=== PATIENT | female | born 1945 | race Caucasian/White ===

== ENCOUNTER 2023-04-03 21:05 | Inpatient (IN) | payer MEDICARE, OTHER, SELFPAY ==
--- NOTE | ~2023-04-03 | CT_ITS ---
EXAMINATION: CT HEAD WITHOUT CONTRAST CLINICAL INFORMATION: Dementia. Vascular event. COMPARISON: None available. TECHNIQUE: Contiguous axial imaging was performed from the skull base to vertex without intravenous administration of contrast. This CT examination was performed using dose optimization techniques as appropriate, variously including the following: *Automated exposure control. *Adjustment of mA and/or kV according to patient size (this includes techniques or standardized protocols for targeted exams where dose is matched to indication/reason for exam; i.e. extremities or head). *Use of iterative reconstruction technique. DLP: 709 mGy-cm FINDINGS: There is no evidence of acute intracranial hemorrhage or edematous territorial infarction. 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 No additional loss of cooper-white matter differentiation. Scattered and partially confluent hypoattenuation in the periventricular and deep white matter are consistent with moderate microangiopathy. Proportional prominence of the ventricles and sulcal spaces without evidence of obstructive hydrocephalus. Prominence of the CSF space in the anterior aspect of the left middle cranial fossa consistent with an underlying 4 cm arachnoid cyst. No additional abnormal mass effect or midline shift. No extra-axial fluid collections. Calcific atherosclerotic disease of the intracranial internal carotid arteries. No hyperdense vessel sign. No acute soft tissue or osseous abnormalities. Moderate mucosal thickening the paranasal sinuses. Mild rightward nasal septal deviation. The mastoid air cells and middle ear cavities are clear. Moderate to advanced degenerative arthropathy of the temporomandibular joints. Bilateral lens extractions. CT/CT head/brain wo IV con IMPRESSION: 1. No evidence of acute intracranial hemorrhage or edematous territorial infarction. 2. Moderate underlying microangiopathy and generalized cerebral volume loss. 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
[2023-04-03 21:41] VITALS: BMI 19.6
[2023-04-03 21:51] VITALS: BMI 43.4
[2023-04-03 21:55] VITALS: BP 132/65; PULSE 85; RESP 18; TEMP 35.8; O2SAT 98
[2023-04-03] MEDS: LORazepam 0.5 MG TABLET PO (23:46)
[2023-04-03] MEDS: risperiDONE 0.5 MG TABLET PO (23:47)
--- NOTE | 2023-04-04 | ECG_ITS ---
Test Reason : htn Blood Pressure : / mmHG Vent. Rate : 071 BPM Atrial Rate : 071 BPM P-R Int : 166 ms QRS Dur : 122 ms QT Int : 412 ms P-R-T Axes : 046 034 153 degrees QTc Int : 447 ms Normal sinus rhythm Left bundle branch block Abnormal ECG No previous ECGs available Referred By: Ray Jacobson Electronically Signed By:TINO DELCID
--- NOTE | 2023-04-04 00:21 | PC.ADMIT ---
Pt is a hospital to hospital transfer from [facility]. Pt arrived on unit 04/03/2023 at 2120. Pt signed CV. Pt calm and cooperative, pleasant, confused. Pt became anxious and impulsive. Pt oriented to self only. Pt can not remember being at [facility] or being transported here. Pt could remember that she lives at home with her Dhaval but does not know her address or Dhaval's phone number. Pt signed consents to contact Dhaval. Pt also gave consent to contact her pharmacy and PCP though she can not provide names. Pt given tour of unit, took HS risperdol and PRN ativan and went to bed. Pt is on 1:1 at this time d/t confusion and impulsively.
[2023-04-04 08:10] VITALS: BP 119/59; PULSE 93; RESP 16; TEMP 36.6; O2SAT 96
[2023-04-04] MEDS: Sertraline HCL 25 MG TABLET PO (08:50)
[2023-04-04] MEDS: Metoprolol Succinate ER 100 MG TAB.ER.24H PO (08:50)
[2023-04-04] MEDS: Spironolactone 25 MG TABLET PO (08:51)
[2023-04-04] MEDS: risperiDONE 0.5 MG TABLET PO ×2 (08:51→22:56)
[2023-04-04] MEDS: Donepezil HCl 5 MG TABLET PO (08:51)
[2023-04-04] MEDS: amLODIPine Besylate 2.5 MG TABLET PO (08:51)
[2023-04-04] MEDS: Fenofibrate 160 MG TABLET PO (08:54)
--- NOTE | 2023-04-04 12:44 | P.CONHOSP_ITS ---
History of Present Illness Data of Consult Service Date: 04/04/23 Primary Care Provider: Unknown Physician HPI Reason for consult: Admission H&P Pt is a 78-year-old female with a PMH significant for HTN, HLD, and Alzheimer's dementia who is admitted to [facility] for increased agitation and disorgazined thought. Medical consult for admission H&P. Attempted to interview and examine pt, but she refused to answer questions or allow physical examination. ? EKG reviewed, showed normal sinus rhythm with left bundle branch block, in line with previous from pt's file, the last on 04/03/2023. CT of head showed no evidence of acute intracranial hemorrhage or edematous territorial infarction Review of Systems Review of Systems: Unable to obtain: pt refused interview. [facility] Social History Household Members: Spouse Housing: House Do you presently have visiting nurse or other home services: No Patient Tobacco Use Status: Never used Tobacco Smoked in Last 30 Days: No e-Cigarette/Vaping Use: Never Used Patient Interested in Nicotine Replacement: No Patient Given Instructions on How to Stop Smoking: No Second Hand Smoke Exposure: No Use of substances other than those prescribed or required for medical reasons: No Currently Displaying Signs/Symptoms of Drug Intoxication Withdrawal: No Any prior treatment program specific to substance use: No Have you been hit, kicked, punched, or otherwise hurt by someone within the past year? If so, by whom?: No Do you feel safe in your current relationship?: Yes Is there a partner from a previous relationship who is making you feel unsafe now?: No Are you made to feel afraid or neglected: No Advance Directives: No Advance Directives Information Provided: No Do you have thoughts of harming others: None Do you have a plan to hurt others: No Plan Recently lost weight without trying: No Nutrition Risks: No Nutritional Risk Patient : No : No Poor oral hygiene: No service: No Sexual orientation: Straight/Heterosexual Meds Allergies Allergy/AdvReac Type Severity Reaction Status Date / Time No Known Allergies Allergy Verified 04/03/23 22:02 Active Medications: Current Medications Acetaminophen (Acetaminophen 325 Mg Tablet) 650 mg PO Q6H PRN PRN Reason: Headache/Pain Mild Scale (1-3) Al Hydroxide/Mg Hydroxide (Magnesium Hydrox/Alum Hydrox 30 Ml Oral.Susp) 30 ml PO Q6H PRN PRN Reason: Heartburn/Nausea Amlodipine Besylate (Amlodipine Besylate 2.5 Mg Tablet) 2.5 mg PO DAILY [facility]; Protocol Last Admin: 04/04/23 08:51 Dose: 2.5 mg Donepezil HCl (Donepezil Hcl 5 Mg Tablet) 5 mg PO DAILY [facility] Last Admin: 04/04/23 08:51 Dose: 5 mg Fenofibrate (Fenofibrate 160 Mg Tablet) 160 mg PO DAILY [facility] Last Admin: 04/04/23 08:54 Dose: 160 mg Lorazepam (Lorazepam 0.5 Mg Tablet) 0.5 mg PO BID PRN PRN Reason: Anxiety Last Admin: 04/03/23 23:46 Dose: 0.5 mg Magnesium Hydroxide (Milk Of Magnesia 30 Ml Oral.Susp) 30 ml PO DAILY PRN PRN Reason: Constipation Metoprolol Succinate (Metoprolol Succinate Er 100 Mg Tab.Er.24h) 100 mg PO DAILY [facility]; Protocol Last Admin: 04/04/23 08:50 Dose: 100 mg Risperidone (Risperidone 0.5 Mg Tablet) 0.5 mg PO BID [facility] Last Admin: 04/04/23 08:51 Dose: 0.5 mg Sertraline HCl (Sertraline Hcl 25 Mg Tablet) 25 mg PO DAILY [facility] Last Admin: 04/04/23 08:50 Dose: 25 mg Spironolactone (Spironolactone 25 Mg Tablet) 25 mg PO DAILY [facility]; Protocol Last Admin: 04/04/23 08:51 Dose: 25 mg Home Medications Medication Instructions Recorded Confirmed Last Taken Type amlodipine 2.5 mg tablet 2.5 mg PO DAILY 04/03/23 04/03/23 04/02/23 09:05 History donepezil 5 mg tablet 5 mg PO DAILY 04/03/23 04/03/23 04/01/23 20:55 History fenofibrate 160 mg tablet 160 mg PO DAILY 04/03/23 04/03/23 04/02/23 09:05 History lorazepam 0.5 mg tablet 0.5 mg PO BID PRN Anxiety 04/03/23 04/03/23 04/02/23 01:05 History metoprolol succinate 100 mg 100 mg PO DAILY 04/03/23 04/03/23 Unknown History tablet,extended release 24 hr olanzapine 2.5 mg PO PRN Agitation 04/03/23 03/29/23 21:45 History olanzapine 5 mg PO DAILY 04/03/23 04/03/23 04/02/23 09:05 History risperidone 0.5 mg PO BID 04/03/23 04/03/23 04/02/23 09:05 History sertraline 25 mg tablet 25 mg PO DAILY 04/03/23 04/03/23 Unknown History spironolactone 25 mg tablet 25 mg PO DAILY 04/03/23 04/03/23 04/02/23 09:05 History Physical Exam Vital Signs and Narrative: Vital Signs: Last Vital Signs Temp 97.8 F 04/04/23 08:10 Pulse 93 04/04/23 08:10 Resp 16 04/04/23 08:10 BP 119/59 L 04/04/23 08:10 Pulse Ox 96 04/04/23 08:10 O2 Del Method Room Air 04/04/23 08:10 BMI result Body Mass Index 43.4 Unable to perform: pt refused exam Assessment and Plan (1) Routine history and physical examination of adult: Status: Acute Plan Pt is a 78-year-old female with a PMH significant for HTN, HLD, and Alzheimer's dementia who is admitted to [facility] for increased agitation and disorgazined thought. Medical consult for admission H&P. Attempted to interview and examine pt, but she refused to answer questions or allow physical examination. Mood disorder Plan as per psychiatry Alzheimer's demetia Unclear if at baseline CT on 03/27/2023 negative for acute intracranial abnormalities CT here on 04/04/2023 showed no evidence of acute intracranial hemorrhage or edematous territorial infarction Continue donepezil Left bundle branch block Appears chronic Continue metoprolol HLD Continue fenofibrate HTN BP control acceptible on current therapies Continue amlodipine, spironolactone Thank you for allowing us to participate in the care of this patient. Signing off at this time. Please let us know if there are any acute complaints or questions. Time Spent With Patient Time: Total time managing care of this patient today ____ minutes.
--- NOTE | 2023-04-04 13:10 | HO.PSYADMNOT ---
[facility] Date of Service: 04/04/23 Chief Complaint: F03.91 Dementia with behavioral disturbances Sources of Information: patient interviewed, chart reviewed and crisis/core team assessment reviewed HPI Subjective Notes: Chambers Warning and Conditional Voluntary Narrative: The patient is a 78-year-old female, , mother of adult children, living with her in the community with a past history of Alzheimer's disease, high blood pressure and a recent onset of confusion with behavioral disturbances. According to the crisis assessment, the patient carries a diagnosis of dementia and she lives with her . In the last weeks the patient had been wandering in the street, eloping from her home, confused at times and trying to get into a neighbor's house. The report also states that the patient gets violent at times easily agitated and even verbally and physically abusive towards her impaired . Her daughter who is involved in the care informed the clinical social work aide the emergency room about the situation. The patient was initially brought to the emergency room of another hospital, medically cleared and transferring to this facility for psychiatric stabilization. Since she was in the unit, the patient has been pleasant, cooperative but extremely confused at times. She had been fully compliant with her treatment so far. On interview, the patient looks confused, states that she is doing fine, she look guarded and refused to elaborate and she was unable to provide further information. She was a very poor historian. She adamantly denies suicidal or homicidal ideation at this moment. Past Psychiatric History: The patient does not have prior psychiatric admissions, she had never been treated for psychiatric conditions. She had been diagnosed of Alzheimer's before. Medical Evaluation Reviewed: Yes [facility] Narrative: High blood pressure Family History: Denies Social History: Unable to get more collateral information, the patient according to the chart, is and has adult children, she has good social support and lives in the community. Substance History: Denies Trauma History: Unknown Diagnostics Vital Signs (24Hr): Vital Signs - 24 hr 04/03/23 21:55 04/04/23 08:10 Temperature 96.4 F L 97.8 F Pulse Rate 85 93 Respiratory Rate 18 16 Blood Pressure 132/65 119/59 L Pulse Oximetry 98 96 Oxygen Delivery Method Room Air Room Air BMI result Body Mass Index 43.4 Meds/Allergies Meds Home Medications Medication Instructions Recorded Confirmed Type amlodipine 2.5 mg tablet 2.5 mg PO DAILY 04/03/23 04/03/23 History donepezil 5 mg tablet 5 mg PO DAILY 04/03/23 04/03/23 History fenofibrate 160 mg tablet 160 mg PO DAILY 04/03/23 04/03/23 History lorazepam 0.5 mg tablet 0.5 mg PO BID PRN Anxiety 04/03/23 04/03/23 History metoprolol succinate 100 mg 100 mg PO DAILY 04/03/23 04/03/23 History tablet,extended release 24 hr olanzapine 2.5 mg PO PRN Agitation 04/03/23 History olanzapine 5 mg PO DAILY 04/03/23 04/03/23 History risperidone 0.5 mg PO BID 04/03/23 04/03/23 History sertraline 25 mg tablet 25 mg PO DAILY 04/03/23 04/03/23 History spironolactone 25 mg tablet 25 mg PO DAILY 04/03/23 04/03/23 History Allergies Allergies Allergy/AdvReac Type Severity Reaction Status Date / Time No Known Allergies Allergy Verified 04/03/23 22:02 Mental Status Exam Mental Status Exam Patient Appearance: Well Grooomed Patient Orientation: Person Level of Consciousness: Awake and Disoriented Patient Behavior: Guarded and Suspicious Mood Description: Withdrawn Affect Description: Labile Patient Cognition Impaired: Yes Ability to Follow Directions: Fair Speech Pattern: Clear Hallucinations: None Thought Process: Distracted, Evasive and Slowed Thinking Thought Content: positive for [place], positive for Poverty of Content and positive for Thought Blocking Judgement: Poor Assessment & Plan Assessment & Plan (1) Neurodegenerative cognitive impairment: Status: Acute Code(s): G31.9 - Degenerative disease of nervous system, unspecified (2) Psychosis: Status: Acute Code(s): F29 - Unspecified psychosis not due to a substance or known physiological condition Plan The patient is an elderly female with a past history of [place] dementia was brought to the emergency room for exacerbation of agitation and confusion in the context of her Alzheimer's dementia. She was medically cleared in the emergency room and so far there is no evidence of UTI or any other medical conditions. Plan 1. Gather collateral information. The patient is a very poor historian unable to provide any details into her past medical history a or why she was here. 2. Continue with Aricept 5 mg p.o. q.h.s. as per med reconciliation. 3. CT scan head without contrast. 4. Regular blood work with basic metabolic panel CBC and TSH. 5. Continue with neuroleptics. 6. Hospitalist assessment for medical clearance. 7. Reassessment with results. Patient educated on: diagnosis, therapeutic strategies and medical condition Reason for continued inpatient stay Substantial Risk for: inability to function, rapid decompensation and med/psych decompensation Statement Statement: I have reviewed the history and physical and performed a pertinent examination on my patient. No changes have occurred unless specified. If the History and Physical was not performed prior to admission, the Hospitalist's service will be consulted for completing the admission physical. Time Spent With Patient Time: Total time managing care of this patient today __45__ minutes.
[2023-04-04 22:30] VITALS: BP 129/60; PULSE 76; RESP 18; TEMP 36.9; O2SAT 97
[2023-04-04] MEDS: LORazepam 0.5 MG TABLET PO (22:56)
[2023-04-05 07:00] VITALS: BMI 19.8
[2023-04-05 08:06] LABS: MANUAL DIFF FLAG NO
[2023-04-05 08:10] LABS: Basophils Absolute Auto 0.1 X10*3/uL (0.0-0.2); Basophils Percent Auto 0.8 % (0-2); Eosinophils Absolute Auto 0.1 X10*3/uL (0.0-0.4); Eosinophils Percent Auto 1.7 % (0-4); Hematocrit 39.3 % (37.0-47.0); Hemoglobin 13.5 g/dl (12.0-16.0); Imm Gran Abs Auto 0.06 X10*3/uL (0.00-0.03); Imm Gran Pct Auto 0.8 % (0.0-0.4); Lymphocytes Absolute Auto 1.3 X10*3/uL (1.2-4.9); Lymphocytes Percent Auto 17.5 % (20-40); Mean Corpuscular HGB Conc 34.4 g/dl (31.0-35.0); Mean Corpuscular Hemoglobin 31.8 pg (27.0-33.0); Mean Corpuscular Volume 92.5 fL (80.0-98.0); Mean Platelet Volume 10.3 fL (9.4-12.3); Monocytes Absolute Auto 0.8 X10*3/uL (0.1-1.2); Monocytes Percent Auto 10.5 % (2-11); Neutrophils Absolute Auto 5.1 x10*3/uL (2.0-8.3); Neutrophils Percent Auto 68.7 % (45-73); Platelet Count 277 X10*3/uL (160-400); Red Blood Count 4.25 X10*6/uL (4.20-5.50); Red Cell Distribution Width 13.2 % (11.0-16.0); White Blood Count 7.4 X10*3/uL (4.8-10.8)
[2023-04-05 08:30] VITALS: BP 135/54; PULSE 79; RESP 16; TEMP 36; O2SAT 97
[2023-04-05 09:09] LABS: Anion Gap 13 (12-20); Blood Urea Nitrogen 26 mg/dL (9-16); Carbon Dioxide 23 mmol/L (22-29); Chloride 106 mmol/L (96-108); Creatinine Clr Calc Pharmacy 65.1; Estimated Glomerular Filt Rate > 60; Glucose Random 103 mg/dL (60-115); Potassium 3.6 mmol/L (3.3-5.1); Sodium 138 mmol/L (135-145)
[2023-04-05] MEDS: Donepezil HCl 5 MG TABLET PO (09:33)
[2023-04-05] MEDS: Metoprolol Succinate ER 100 MG TAB.ER.24H PO (09:33)
[2023-04-05] MEDS: risperiDONE 0.5 MG TABLET PO ×2 (09:33→20:41)
[2023-04-05] MEDS: Fenofibrate 160 MG TABLET PO (09:34)
[2023-04-05] MEDS: Spironolactone 25 MG TABLET PO (09:34)
[2023-04-05] MEDS: amLODIPine Besylate 2.5 MG TABLET PO (09:34)
[2023-04-05] MEDS: Sertraline HCL 25 MG TABLET PO (09:34)
--- NOTE | 2023-04-05 13:58 | HO.PSYCHPN ---
Subjective Subjective Date of Service: 04/05/23 Reason For Visit: F03.91 Dementia with behavioral disturbances Subjective Notes: Conditional Voluntary (Healthcare proxy) Interim History: The nursing staff reported that the patient has been confused but pleasantly confused, off 1:1, safe in the community. On interview, she was unable to understand that she was in the hospital, unable to remember how come she ended here. I invoked her HCP and her HCP signed herself her. Mental Status Exam Mental Status Exam Patient Appearance: Well Grooomed and Appropriate Patient Orientation: Person Level of Consciousness: Disoriented Patient Behavior: Guarded and Passive Mood Description: Withdrawn Affect Description: Constricted Patient Cognition Impaired: Yes Ability to Follow Directions: Fair Speech Pattern: Clear Hallucinations: None Delusions: Paranoid Ideation Thought Process: Illogical and Distracted Thought Content: positive for [place], positive for Poverty of Content, positive for [place] and positive for Thought Blocking Judgement: Poor Diagnostics Vital Signs (24Hr): Vital Signs - 24 hr 04/04/23 22:30 04/05/23 08:30 Temperature 98.4 F 96.8 F Pulse Rate 76 79 Respiratory Rate 18 16 Blood Pressure 129/60 135/54 L Pulse Oximetry 97 97 Oxygen Delivery Method Room Air Room Air BMI result Body Mass Index 43.4 Labs 04/05/23 08:04 04/05/23 08:04 Labs: Laboratory Results - last 48 hr 04/05/23 04/05/23 08:04 08:04 WBC 7.4 RBC 4.25 Hgb 13.5 Hct 39.3 MCV 92.5 MCH 31.8 MCHC 34.4 RDW 13.2 Plt Count 277 MPV 10.3 Immature Gran % (Auto) 0.8 H Neut % (Auto) 68.7 Lymph % (Auto) 17.5 L [place] % (Auto) 10.5 Eos % (Auto) 1.7 Baso % (Auto) 0.8 Lymph # (Auto) 1.3 [place] # (Auto) 0.8 Eos # (Auto) 0.1 Baso # (Auto) 0.1 Abs Immat Gran (auto) 0.06 H Absolute Neuts (auto) 5.1 Absolute Nucleated RBC 0.000 Nucleated RBC % (auto) 0.0 Sodium 138 Potassium 3.6 Chloride 106 Carbon Dioxide 23 Anion Gap 13 BUN 26 H Creatinine 0.87 Estim Creat Clear Calc 65.1 Estimated GFR > 60 Random Glucose 103 Calcium 10.0 TSH 2.60 Imaging Radiology Impressions: ITS Impressions Head CT 04/04/23 11:19 IMPRESSION: 1. No evidence of acute intracranial hemorrhage or edematous territorial infarction. 2. Moderate underlying microangiopathy and generalized cerebral volume loss. 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 Medications Medications Current Medications Acetaminophen (Acetaminophen 325 Mg Tablet) 650 mg PO Q6H PRN PRN Reason: Headache/Pain Mild Scale (1-3) Al Hydroxide/Mg Hydroxide (Magnesium Hydrox/Alum Hydrox 30 Ml Oral.Susp) 30 ml PO Q6H PRN PRN Reason: Heartburn/Nausea Amlodipine Besylate (Amlodipine Besylate 2.5 Mg Tablet) 2.5 mg PO DAILY [facility]; Protocol Last Admin: 04/05/23 09:34 Dose: 2.5 mg Donepezil HCl (Donepezil Hcl 5 Mg Tablet) 5 mg PO DAILY [facility] Last Admin: 04/05/23 09:33 Dose: 5 mg Fenofibrate (Fenofibrate 160 Mg Tablet) 160 mg PO DAILY [facility] Last Admin: 04/05/23 09:34 Dose: 160 mg Lorazepam (Lorazepam 0.5 Mg Tablet) 0.5 mg PO BID PRN PRN Reason: Anxiety Last Admin: 04/04/23 22:56 Dose: 0.5 mg Magnesium Hydroxide (Milk Of Magnesia 30 Ml Oral.Susp) 30 ml PO DAILY PRN PRN Reason: Constipation Metoprolol Succinate (Metoprolol Succinate Er 100 Mg Tab.Er.24h) 100 mg PO DAILY [facility]; Protocol Last Admin: 04/05/23 09:33 Dose: 100 mg Risperidone (Risperidone 0.5 Mg Tablet) 0.5 mg PO BID [facility] Last Admin: 04/05/23 09:33 Dose: 0.5 mg Sertraline HCl (Sertraline Hcl 25 Mg Tablet) 25 mg PO DAILY [facility] Last Admin: 04/05/23 09:34 Dose: 25 mg Spironolactone (Spironolactone 25 Mg Tablet) 25 mg PO DAILY [facility]; Protocol Last Admin: 04/05/23 09:34 Dose: 25 mg Allergies Allergies Allergy/AdvReac Type Severity Reaction Status Date / Time No Known Allergies Allergy Verified 04/03/23 22:02 Assessment & Plan Assessment & Plan (1) Routine history and physical examination of adult: Status: Acute Code(s): Z00.00 - Encounter for general adult medical examination without abnormal findings Plan Pt is a 78-year-old female with a PMH significant for HTN, HLD, and Alzheimer's dementia who is admitted to [facility] for increased agitation and disorgazined thought. Medical consult for admission H&P. Attempted to interview and examine pt, but she refused to answer questions or allow physical examination. Mood disorder Plan as per psychiatry Alzheimer's demetia Unclear if at baseline CT on 03/27/2023 negative for acute intracranial abnormalities CT here on 04/04/2023 showed no evidence of acute intracranial hemorrhage or edematous territorial infarction Continue donepezil Left bundle branch block Appears chronic Continue metoprolol HLD Continue fenofibrate HTN BP control acceptible on current therapies Continue amlodipine, spironolactone Thank you for allowing us to participate in the care of this patient. Signing off at this time. Please let us know if there are any acute complaints or questions. Plan 1. Gather collateral information. 2. Continue with medical work-out. 3. Increase Aricept up to 10 mg to target dementia. Reason for continued inpatient stay Substantial Risk for: inability to function, rapid decompensation and med/psych decompensation Time Spent With Patient Time: Total time managing care of this patient today __20__ minutes.
[2023-04-05 18:00] VITALS: BP 133/56; PULSE 65; RESP 18; TEMP 36.1; O2SAT 100
[2023-04-06 08:10] VITALS: BP 124/59; PULSE 59; RESP 18; TEMP 36.4; O2SAT 100
[2023-04-06] MEDS: amLODIPine Besylate 2.5 MG TABLET PO (08:12)
[2023-04-06] MEDS: Donepezil HCl 10 MG TABLET PO (08:12)
[2023-04-06] MEDS: risperiDONE 0.5 MG TABLET PO (08:12)
[2023-04-06] MEDS: Sertraline HCL 25 MG TABLET PO (08:12)
[2023-04-06] MEDS: Fenofibrate 160 MG TABLET PO (08:12)
[2023-04-06] MEDS: Spironolactone 25 MG TABLET PO (08:12)
[2023-04-06] MEDS: Metoprolol Succinate ER 100 MG TAB.ER.24H PO (08:12)
--- NOTE | 2023-04-06 11:50 | P.PNPSI_ITS ---
Subjective Subjective Date of Service: 04/06/23 Reason For Visit: F03.91 Dementia with behavioral disturbances Subjective Notes: Conditional Voluntary Interim History: The nursing staff reported the patient had been profoundly confused, she is pleasant and medication compliant with sporadic exit seeking behavior but easily redirectable. The high school social science teacher reported that her daughter wants back home. So far there has not been a aggression in the unit. On interview the patient denies new symptoms she is very confused unable to follow the interview nonsensical at times. Mental Status Exam Mental Status Exam Patient Appearance: Appropriate Patient Orientation: Person and Situation Level of Consciousness: Awake and Appropriate Patient Behavior: Guarded and Passive Mood Description: Withdrawn Affect Description: Constricted Patient Cognition Impaired: Yes Ability to Follow Directions: Good Speech Pattern: Clear Hallucinations: None Delusions: Paranoid Ideation Thought Process: Incoherent, Illogical and Slowed Thinking Thought Content: positive for [place] Judgement: Poor Diagnostics Vital Signs (24Hr): Vital Signs - 24 hr 04/05/23 18:00 04/06/23 08:10 Temperature 96.9 F 97.5 F Pulse Rate 65 59 Respiratory Rate 18 18 Blood Pressure 133/56 L 124/59 L Pulse Oximetry 100 100 Oxygen Delivery Method Room Air Room Air BMI result Body Mass Index 19.8 Labs 04/05/23 08:04 04/05/23 08:04 Labs: Laboratory Results - last 48 hr 04/05/23 04/05/23 08:04 08:04 WBC 7.4 RBC 4.25 Hgb 13.5 Hct 39.3 MCV 92.5 MCH 31.8 MCHC 34.4 RDW 13.2 Plt Count 277 MPV 10.3 Immature Gran % (Auto) 0.8 H Neut % (Auto) 68.7 Lymph % (Auto) 17.5 L [place] % (Auto) 10.5 Eos % (Auto) 1.7 Baso % (Auto) 0.8 Lymph # (Auto) 1.3 [place] # (Auto) 0.8 Eos # (Auto) 0.1 Baso # (Auto) 0.1 Abs Immat Gran (auto) 0.06 H Absolute Neuts (auto) 5.1 Absolute Nucleated RBC 0.000 Nucleated RBC % (auto) 0.0 Sodium 138 Potassium 3.6 Chloride 106 Carbon Dioxide 23 Anion Gap 13 BUN 26 H Creatinine 0.87 Estim Creat Clear Calc 65.1 Estimated GFR > 60 Random Glucose 103 Calcium 10.0 TSH 2.60 Imaging Radiology Impressions: ITS Impressions Head CT 04/04/23 11:19 IMPRESSION: 1. No evidence of acute intracranial hemorrhage or edematous territorial infarction. 2. Moderate underlying microangiopathy and generalized cerebral volume loss. 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 Medications Medications Current Medications Acetaminophen (Acetaminophen 325 Mg Tablet) 650 mg PO Q6H PRN PRN Reason: Headache/Pain Mild Scale (1-3) Al Hydroxide/Mg Hydroxide (Magnesium Hydrox/Alum Hydrox 30 Ml Oral.Susp) 30 ml PO Q6H PRN PRN Reason: Heartburn/Nausea Amlodipine Besylate (Amlodipine Besylate 2.5 Mg Tablet) 2.5 mg PO DAILY [facility]; Protocol Last Admin: 04/06/23 08:12 Dose: 2.5 mg Donepezil HCl (Donepezil Hcl 10 Mg Tablet) 10 mg PO DAILY [facility] Last Admin: 04/06/23 08:12 Dose: 10 mg Fenofibrate (Fenofibrate 160 Mg Tablet) 160 mg PO DAILY [facility] Last Admin: 04/06/23 08:12 Dose: 160 mg Lorazepam (Lorazepam 0.5 Mg Tablet) 0.5 mg PO BID PRN PRN Reason: Anxiety Last Admin: 04/04/23 22:56 Dose: 0.5 mg Magnesium Hydroxide (Milk Of Magnesia 30 Ml Oral.Susp) 30 ml PO DAILY PRN PRN Reason: Constipation Metoprolol Succinate (Metoprolol Succinate Er 100 Mg Tab.Er.24h) 100 mg PO DAILY [facility]; Protocol Last Admin: 04/06/23 08:12 Dose: 100 mg Risperidone (Risperidone 0.5 Mg Tablet) 0.5 mg PO BID [facility] Last Admin: 04/06/23 08:12 Dose: 0.5 mg Sertraline HCl (Sertraline Hcl 25 Mg Tablet) 25 mg PO DAILY [facility] Last Admin: 04/06/23 08:12 Dose: 25 mg Spironolactone (Spironolactone 25 Mg Tablet) 25 mg PO DAILY [facility]; Protocol Last Admin: 04/06/23 08:12 Dose: 25 mg Allergies Allergies Allergy/AdvReac Type Severity Reaction Status Date / Time No Known Allergies Allergy Verified 04/03/23 22:02 Assessment & Plan Assessment & Plan (1) Routine history and physical examination of adult: Status: Acute Code(s): Z00.00 - Encounter for general adult medical examination without abnormal findings Plan Pt is a 78-year-old female with a PMH significant for HTN, HLD, and Alzheimer's dementia who is admitted to [facility] for increased agitation and disorgazined thought. Medical consult for admission H&P. Attempted to interview and examine pt, but she refused to answer questions or allow physical examination. Mood disorder Plan as per psychiatry Alzheimer's demetia Unclear if at baseline CT on 03/27/2023 negative for acute intracranial abnormalities CT here on 04/04/2023 showed no evidence of acute intracranial hemorrhage or edematous territorial infarction Continue donepezil Left bundle branch block Appears chronic Continue metoprolol HLD Continue fenofibrate HTN BP control acceptible on current therapies Continue amlodipine, spironolactone Thank you for allowing us to participate in the care of this patient. Signing off at this time. Please let us know if there are any acute complaints or questions. Plan 1. Gather collateral information. 2. Continue with medical work-out. 3. Increase Aricept up to 10 mg to target dementia. Reason for continued inpatient stay Substantial Risk for: inability to function, rapid decompensation and med/psych decompensation Time Spent With Patient Time: Total time managing care of this patient today __20__ minutes.
[2023-04-06 17:29] LABS: Appearance Urine Cloudy; Color Urine Yellow; Glucose Urine UA Negative (Negative); Leukocyte Esterase Urine Trace (Negative); Nitrite Urine Negative (Negative); PH 6.5 (5.0-9.0); UMIC TRIGGER UACC YES; Urine Blood Negative (Negative); Urine Ketones Negative (Negative); Urine Protein Negative (Neg-Trace)
[2023-04-06 17:31] LABS: Bacteria Urine None Seen (None Seen); Hyaline Casts Urine 0-2 /LPF (0-2); RBC Urine 0-2 /HPF (0-2); Squamous Epithelial Cell Urine 0-2 /HPF (0-2); WBC Urine 0-5 /HPF (0-5)
[2023-04-06 18:00] VITALS: RESP 17
[2023-04-07] MEDS: Donepezil HCl 10 MG TABLET PO (08:37)
[2023-04-07] MEDS: risperiDONE 0.5 MG TABLET PO ×2 (08:37→19:46)
[2023-04-07] MEDS: Sertraline HCL 25 MG TABLET PO (08:37)
[2023-04-07 08:45] VITALS: BP 116/53; PULSE 58; RESP 18; TEMP 36.1; O2SAT 98
[2023-04-07] MEDS: amLODIPine Besylate 2.5 MG TABLET PO (09:04)
[2023-04-07] MEDS: Fenofibrate 160 MG TABLET PO (09:04)
[2023-04-07] MEDS: Spironolactone 25 MG TABLET PO (09:05)
--- NOTE | 2023-04-07 11:39 | P.PNPSI_ITS ---
Subjective Subjective Date of Service: 04/07/23 Reason For Visit: F03.91 Dementia with behavioral disturbances Interim History: The nursing staff reported the patient has been confused but compliant and mostly pleasant. On interview patient is very confused. Unaware of date, place or why she is in a hospital. Confabulates. She has some exit seeking behavior but is redirectable. Her metoprolol was held this morning dur to BP 90's which improved after eating. Received her other medications. Review of Systems Review of Systems Unable to obtain: pt refused interview. Yes Unobtainable due to mental status Mental Status Exam Mental Status Exam Patient Appearance: Appropriate Patient Orientation: Person Level of Consciousness: Awake and Appropriate Patient Behavior: Guarded and Passive Mood Description: Withdrawn Affect Description: Constricted Patient Cognition Impaired: Yes Ability to Follow Directions: Good Speech Pattern: Clear Diagnostics Vital Signs (24Hr): Vital Signs - 24 hr 04/06/23 18:00 04/07/23 08:45 Temperature 96.9 F Pulse Rate 58 Respiratory Rate 17 18 Blood Pressure 116/53 L Pulse Oximetry 98 Oxygen Delivery Method Room Air BMI result Body Mass Index 19.8 Labs 04/05/23 08:04 04/05/23 08:04 Labs: Laboratory Results - last 48 hr 04/06/23 16:30 Urine Color Yellow Urine Appearance Cloudy Urine pH 6.5 Ur Specific [place] 1.020 Urine Protein Negative Urine Glucose (UA) Negative Urine Ketones Negative Urine Blood Negative Urine Nitrite Negative Ur Leukocyte Esterase Trace H Urine RBC 0-2 Urine WBC 0-5 Ur Squamous Epith Cells 0-2 Urine Bacteria None Seen Hyaline Casts 0-2 Imaging Radiology Impressions: ITS Impressions Head CT 04/04/23 11:19 IMPRESSION: 1. No evidence of acute intracranial hemorrhage or edematous territorial infarction. 2. Moderate underlying microangiopathy and generalized cerebral volume loss. 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 Medications Medications Current Medications Acetaminophen (Acetaminophen 325 Mg Tablet) 650 mg PO Q6H PRN PRN Reason: Headache/Pain Mild Scale (1-3) Al Hydroxide/Mg Hydroxide (Magnesium Hydrox/Alum Hydrox 30 Ml Oral.Susp) 30 ml PO Q6H PRN PRN Reason: Heartburn/Nausea Amlodipine Besylate (Amlodipine Besylate 2.5 Mg Tablet) 2.5 mg PO DAILY [facility]; Protocol Last Admin: 04/07/23 09:04 Dose: 2.5 mg Donepezil HCl (Donepezil Hcl 10 Mg Tablet) 10 mg PO DAILY [facility] Last Admin: 04/07/23 08:37 Dose: 10 mg Fenofibrate (Fenofibrate 160 Mg Tablet) 160 mg PO DAILY [facility] Last Admin: 04/07/23 09:04 Dose: 160 mg Lorazepam (Lorazepam 0.5 Mg Tablet) 0.5 mg PO BID PRN PRN Reason: Anxiety Last Admin: 04/04/23 22:56 Dose: 0.5 mg Magnesium Hydroxide (Milk Of Magnesia 30 Ml Oral.Susp) 30 ml PO DAILY PRN PRN Reason: Constipation Metoprolol Succinate (Metoprolol Succinate Er 100 Mg Tab.Er.24h) 100 mg PO DAILY [facility]; Protocol Last Admin: 04/07/23 09:07 Dose: Not Given Risperidone (Risperidone 0.5 Mg Tablet) 0.5 mg PO BID [facility] Last Admin: 04/07/23 08:37 Dose: 0.5 mg Sertraline HCl (Sertraline Hcl 25 Mg Tablet) 25 mg PO DAILY [facility] Last Admin: 04/07/23 08:37 Dose: 25 mg Spironolactone (Spironolactone 25 Mg Tablet) 25 mg PO DAILY [facility]; Protocol Last Admin: 04/07/23 09:05 Dose: 25 mg Allergies Allergies Allergy/AdvReac Type Severity Reaction Status Date / Time No Known Allergies Allergy Verified 04/03/23 22:02 Assessment & Plan Assessment & Plan (1) Routine history and physical examination of adult: Status: Acute Code(s): Z00.00 - Encounter for general adult medical examination without abnormal findings Plan Pt is a 78-year-old female with a PMH significant for HTN, HLD, and Alzheimer's dementia who is admitted to [facility] for increased agitation and disorgazined thought. Medical consult for admission H&P. Attempted to interview and examine pt, but she refused to answer questions or allow physical examination. Mood disorder Plan as per psychiatry Alzheimer's demetia Unclear if at baseline CT on 03/27/2023 negative for acute intracranial abnormalities CT here on 04/04/2023 showed no evidence of acute intracranial hemorrhage or edematous territorial infarction Continue donepezil Left bundle branch block Appears chronic Continue metoprolol HLD Continue fenofibrate HTN BP control acceptible on current therapies Continue amlodipine, spironolactone Thank you for allowing us to participate in the care of this patient. Signing off at this time. Please let us know if there are any acute complaints or questions. Plan 1. Gather collateral information. 2. Continue with medical work-out. 3. Increase Aricept up to 10 mg to target dementia. 04/07: continue current medication and treatment plan. Reason for continued inpatient stay Substantial Risk for: inability to function and rapid decompensation Time Spent With Patient Time: Total time managing care of this patient today ____ minutes.
[2023-04-07 18:00] VITALS: BP 110/57; PULSE 59; RESP 18; TEMP 36.4; O2SAT 98
[2023-04-08 08:00] VITALS: BP 120/59; PULSE 87; RESP 18; TEMP 35.9; O2SAT 99
[2023-04-08] MEDS: Sertraline HCL 25 MG TABLET PO (08:02)
[2023-04-08] MEDS: risperiDONE 0.5 MG TABLET PO ×2 (08:02→20:12)
[2023-04-08] MEDS: Fenofibrate 160 MG TABLET PO (08:02)
[2023-04-08] MEDS: Metoprolol Succinate ER 100 MG TAB.ER.24H PO (08:03)
[2023-04-08] MEDS: Spironolactone 25 MG TABLET PO (08:03)
[2023-04-08] MEDS: amLODIPine Besylate 2.5 MG TABLET PO (08:04)
[2023-04-08] MEDS: Donepezil HCl 10 MG TABLET PO (08:04)
[2023-04-08 11:15] VITALS: TEMP 36.2
[2023-04-08 18:25] VITALS: TEMP 36.1
--- NOTE | 2023-04-08 19:35 | HO.PSYCHPN ---
Subjective Subjective Date of Service: 04/08/23 Reason For Visit: F03.91 Dementia with behavioral disturbances Interim History: The nursing staff reported the patient has been confused but compliant and mostly pleasant. On interview patient is very confused. Unaware of date, place or why she is in a hospital. Confabulates. She is redirectable when needed. Review of Systems Review of Systems Unable to obtain: pt refused interview. Yes Unobtainable due to mental status Mental Status Exam Mental Status Exam Patient Appearance: Appropriate Patient Orientation: Person Level of Consciousness: Awake and Appropriate Patient Behavior: Guarded and Passive Mood Description: Withdrawn Affect Description: Constricted Patient Cognition Impaired: Yes Ability to Follow Directions: Good Speech Pattern: Clear Diagnostics Vital Signs (24Hr): Vital Signs - 24 hr 04/08/23 08:00 04/08/23 11:15 04/08/23 18:25 Temperature 96.6 F L 97.2 F 96.9 F Pulse Rate 87 Respiratory Rate 18 Blood Pressure 120/59 L Pulse Oximetry 99 Oxygen Delivery Method Room Air BMI result Body Mass Index 19.8 Labs 04/05/23 08:04 04/05/23 08:04 Imaging Radiology Impressions: ITS Impressions Head CT 04/04/23 11:19 IMPRESSION: 1. No evidence of acute intracranial hemorrhage or edematous territorial infarction. 2. Moderate underlying microangiopathy and generalized cerebral volume loss. 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 Medications Medications Current Medications Acetaminophen (Acetaminophen 325 Mg Tablet) 650 mg PO Q6H PRN PRN Reason: Headache/Pain Mild Scale (1-3) Al Hydroxide/Mg Hydroxide (Magnesium Hydrox/Alum Hydrox 30 Ml Oral.Susp) 30 ml PO Q6H PRN PRN Reason: Heartburn/Nausea Amlodipine Besylate (Amlodipine Besylate 2.5 Mg Tablet) 2.5 mg PO DAILY [facility]; Protocol Last Admin: 04/08/23 08:04 Dose: 2.5 mg Donepezil HCl (Donepezil Hcl 10 Mg Tablet) 10 mg PO DAILY [facility] Last Admin: 04/08/23 08:04 Dose: 10 mg Fenofibrate (Fenofibrate 160 Mg Tablet) 160 mg PO DAILY [facility] Last Admin: 04/08/23 08:02 Dose: 160 mg Lorazepam (Lorazepam 0.5 Mg Tablet) 0.5 mg PO BID PRN PRN Reason: Anxiety Last Admin: 04/04/23 22:56 Dose: 0.5 mg Magnesium Hydroxide (Milk Of Magnesia 30 Ml Oral.Susp) 30 ml PO DAILY PRN PRN Reason: Constipation Metoprolol Succinate (Metoprolol Succinate Er 100 Mg Tab.Er.24h) 100 mg PO DAILY [facility]; Protocol Last Admin: 04/08/23 08:03 Dose: 100 mg Risperidone (Risperidone 0.5 Mg Tablet) 0.5 mg PO BID [facility] Last Admin: 04/08/23 08:02 Dose: 0.5 mg Sertraline HCl (Sertraline Hcl 25 Mg Tablet) 25 mg PO DAILY [facility] Last Admin: 04/08/23 08:02 Dose: 25 mg Spironolactone (Spironolactone 25 Mg Tablet) 25 mg PO DAILY [facility]; Protocol Last Admin: 04/08/23 08:03 Dose: 25 mg Allergies Allergies Allergy/AdvReac Type Severity Reaction Status Date / Time No Known Allergies Allergy Verified 04/03/23 22:02 Assessment & Plan Assessment & Plan (1) Routine history and physical examination of adult: Status: Acute Code(s): Z00.00 - Encounter for general adult medical examination without abnormal findings Plan Pt is a 78-year-old female with a PMH significant for HTN, HLD, and Alzheimer's dementia who is admitted to [facility] for increased agitation and disorgazined thought. Medical consult for admission H&P. Attempted to interview and examine pt, but she refused to answer questions or allow physical examination. Mood disorder Plan as per psychiatry Alzheimer's demetia Unclear if at baseline CT on 03/27/2023 negative for acute intracranial abnormalities CT here on 04/04/2023 showed no evidence of acute intracranial hemorrhage or edematous territorial infarction Continue donepezil Left bundle branch block Appears chronic Continue metoprolol HLD Continue fenofibrate HTN BP control acceptible on current therapies Continue amlodipine, spironolactone Thank you for allowing us to participate in the care of this patient. Signing off at this time. Please let us know if there are any acute complaints or questions. Plan 1. Gather collateral information. 2. Continue with medical work-out. 3. Increase Aricept up to 10 mg to target dementia. 04/07: continue current medication and treatment plan. 04/08: continue current plan. Reason for continued inpatient stay Substantial Risk for: inability to function and rapid decompensation Time Spent With Patient Time: Total time managing care of this patient today ____ minutes.
[2023-04-08 21:26] VITALS: BP 117/63; PULSE 74; RESP 18; TEMP 36; O2SAT 98
[2023-04-09 08:05] VITALS: BP 125/58; PULSE 67; RESP 16; TEMP 36.2; O2SAT 97
[2023-04-09] MEDS: Fenofibrate 160 MG TABLET PO (08:09)
[2023-04-09] MEDS: Spironolactone 25 MG TABLET PO (08:09)
[2023-04-09] MEDS: amLODIPine Besylate 2.5 MG TABLET PO (08:10)
[2023-04-09] MEDS: Metoprolol Succinate ER 100 MG TAB.ER.24H PO (08:10)
[2023-04-09] MEDS: Donepezil HCl 10 MG TABLET PO (08:10)
[2023-04-09] MEDS: Sertraline HCL 25 MG TABLET PO (08:10)
[2023-04-09] MEDS: risperiDONE 0.5 MG TABLET PO ×2 (08:10→20:09)
--- NOTE | 2023-04-09 09:30 | P.PNPSI_ITS ---
Subjective Subjective Date of Service: 04/09/23 Reason For Visit: F03.91 Dementia with behavioral disturbances Subjective Notes: Conditional Voluntary Interim History: The nursing staff reported the patient had been confused, she had been having difficulties with ADL less and she has very limited appetite. She was seen exit seeking but easily redirectable. She vomited once at lunch yesterday. We discussed the case with the team were ordering antisqueak chalker consult. The occupational therapist tried to assess her cognitively and she scored tree 0.4 on the [place] test that it is the lowest that it can be record and she could not finish the [place] test. On interview the patient was pleasantly confused, easily redirectable she agreed to continue taking her medications and we are adding Namenda for dementia. Mental Status Exam Mental Status Exam Patient Appearance: Well Grooomed Patient Orientation: Person Level of Consciousness: Awake Patient Behavior: Guarded and Passive Mood Description: Withdrawn Affect Description: Constricted Patient Cognition Impaired: Yes Ability to Follow Directions: Good Speech Pattern: Clear Hallucinations: None Delusions: Paranoid Ideation Thought Process: Distracted Thought Content: positive for [place] and positive for [place] Content Judgement: Fair Diagnostics Vital Signs (24Hr): Vital Signs - 24 hr 04/08/23 11:15 04/08/23 18:25 04/08/23 21:26 Temperature 97.2 F 96.9 F 96.8 F Pulse Rate 74 Respiratory Rate 18 Blood Pressure 117/63 Pulse Oximetry 98 Oxygen Delivery Method Room Air 04/09/23 08:05 Temperature 97.1 F Pulse Rate 67 Respiratory Rate 16 Blood Pressure 125/58 L Pulse Oximetry 97 Oxygen Delivery Method Room Air BMI result Body Mass Index 19.8 Labs 04/05/23 08:04 04/05/23 08:04 Imaging Radiology Impressions: ITS Impressions Head CT 04/04/23 11:19 IMPRESSION: 1. No evidence of acute intracranial hemorrhage or edematous territorial infarction. 2. Moderate underlying microangiopathy and generalized cerebral volume loss. 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 Medications Medications Current Medications Acetaminophen (Acetaminophen 325 Mg Tablet) 650 mg PO Q6H PRN PRN Reason: Headache/Pain Mild Scale (1-3) Al Hydroxide/Mg Hydroxide (Magnesium Hydrox/Alum Hydrox 30 Ml Oral.Susp) 30 ml PO Q6H PRN PRN Reason: Heartburn/Nausea Amlodipine Besylate (Amlodipine Besylate 2.5 Mg Tablet) 2.5 mg PO DAILY [facility]; Protocol Last Admin: 04/09/23 08:10 Dose: 2.5 mg Donepezil HCl (Donepezil Hcl 10 Mg Tablet) 10 mg PO DAILY [facility] Last Admin: 04/09/23 08:10 Dose: 10 mg Fenofibrate (Fenofibrate 160 Mg Tablet) 160 mg PO DAILY [facility] Last Admin: 04/09/23 08:09 Dose: 160 mg Magnesium Hydroxide (Milk Of Magnesia 30 Ml Oral.Susp) 30 ml PO DAILY PRN PRN Reason: Constipation Memantine (Memantine Hcl 5 Mg Tablet) 5 mg PO DAILY [facility] Metoprolol Succinate (Metoprolol Succinate Er 100 Mg Tab.Er.24h) 100 mg PO DAILY [facility]; Protocol Last Admin: 04/09/23 08:10 Dose: 100 mg Risperidone (Risperidone 0.5 Mg Tablet) 0.5 mg PO BID [facility] Last Admin: 04/09/23 08:10 Dose: 0.5 mg Sertraline HCl (Sertraline Hcl 25 Mg Tablet) 25 mg PO DAILY [facility] Last Admin: 04/09/23 08:10 Dose: 25 mg Spironolactone (Spironolactone 25 Mg Tablet) 25 mg PO DAILY [facility]; Protocol Last Admin: 04/09/23 08:09 Dose: 25 mg Allergies Allergies Allergy/AdvReac Type Severity Reaction Status Date / Time No Known Allergies Allergy Verified 04/03/23 22:02 Assessment & Plan Assessment & Plan (1) Routine history and physical examination of adult: Status: Acute Code(s): Z00.00 - Encounter for general adult medical examination without abnormal findings Plan Pt is a 78-year-old female with a PMH significant for HTN, HLD, and Alzheimer's dementia who is admitted to [facility] for increased agitation and disorgazined thought. Medical consult for admission H&P. Attempted to interview and examine p t, but she refused to answer questions or allow physical examination. Mood disorder Plan as per psychiatry Alzheimer's demetia Unclear if at baseline CT on 03/27/2023 negative for acute intracranial abnormalities CT here on 04/04/2023 showed no evidence of acute intracranial hemorrhage or edematous territorial infarction Continue donepezil Left bundle branch block Appears chronic Continue metoprolol HLD Continue fenofibrate HTN BP control acceptible on current therapies Continue amlodipine, spironolactone Thank you for allowing us to participate in the care of this patient. Signing off at this time. Please let us know if there are any acute complaints or questions. Plan 1. Gather collateral information. 2. Continue with medical work-out. 3. Increase Aricept up to 10 mg to target dementia. 4. Start Namenda 5 mg p.o. daily on April 09. Reason for continued inpatient stay Substantial Risk for: inability to function, rapid decompensation and med/psych decompensation Time Spent With Patient Time: Total time managing care of this patient today __25__ minutes.
[2023-04-09] MEDS: Memantine HCl 5 MG TABLET PO (10:34)
--- NOTE | 2023-04-09 15:33 | MHC.CLN ---
NUTRITION CONSULT FOR POOR PO AND WEIGHT LOSS. [id number]#, BMI=19.8. POOR INTAKE REPORTED. ADDING ENSURE TID TO PROVIDE [address], [address] TO FOLLOW FOR INTAKE AND WEIGHT.
[2023-04-09 19:35] VITALS: BP 113/68; PULSE 60; RESP 18; TEMP 36.6; O2SAT 98
[2023-04-10 08:00] VITALS: BP 126/58; PULSE 66; RESP 16; TEMP 36; O2SAT 100
[2023-04-10] MEDS: amLODIPine Besylate 2.5 MG TABLET PO (08:52)
[2023-04-10] MEDS: Sertraline HCL 25 MG TABLET PO (08:52)
[2023-04-10] MEDS: Fenofibrate 160 MG TABLET PO (08:52)
[2023-04-10] MEDS: Donepezil HCl 10 MG TABLET PO (08:52)
[2023-04-10] MEDS: Spironolactone 25 MG TABLET PO (08:52)
[2023-04-10] MEDS: risperiDONE 0.5 MG TABLET PO ×2 (08:53→20:33)
[2023-04-10] MEDS: Memantine HCl 5 MG TABLET PO (08:53)
[2023-04-10] MEDS: Metoprolol Succinate ER 100 MG TAB.ER.24H PO (08:53)
--- NOTE | 2023-04-10 10:02 | P.PNPSI_ITS ---
Subjective Subjective Date of Service: 04/10/23 Reason For Visit: F03.91 Dementia with behavioral disturbances Subjective Notes: Conditional Voluntary Interim History: Nursing staff reported the patient has been confused cooperative and pleasant. The staff has noticed the patient was verbally aggressive towards her over the phone. The social sciences department chair reported will have a family meeting with her and daughter were very concerned tomorrow to p.m.. On interview the patient is pleasantly confused, easily redirectable, no side effects with the current medications. Mental Status Exam Mental Status Exam Patient Appearance: Well Grooomed and Appropriate Patient Orientation: Person Level of Consciousness: Awake and Appropriate Patient Behavior: Guarded and Passive Mood Description: Withdrawn and Constricted Affect Description: Calm Patient Cognition Impaired: Yes Ability to Follow Directions: Good Speech Pattern: Monotone Hallucinations: None Delusions: Not Present Thought Process: Distracted Thought Content: positive for Circumstantial Judgement: Fair Diagnostics Vital Signs (24Hr): Vital Signs - 24 hr 04/09/23 19:35 04/10/23 08:00 Temperature 97.9 F 96.8 F Pulse Rate 60 66 Respiratory Rate 18 16 Blood Pressure 113/68 126/58 L Pulse Oximetry 98 100 Oxygen Delivery Method Room Air Room Air BMI result Body Mass Index 19.8 Labs 04/05/23 08:04 04/05/23 08:04 Imaging Radiology Impressions: ITS Impressions Head CT 04/04/23 11:19 IMPRESSION: 1. No evidence of acute intracranial hemorrhage or edematous territorial infarction. 2. Moderate underlying microangiopathy and generalized cerebral volume loss. 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 Medications Medications Current Medications Acetaminophen (Acetaminophen 325 Mg Tablet) 650 mg PO Q6H PRN PRN Reason: Headache/Pain Mild Scale (1-3) Al Hydroxide/Mg Hydroxide (Magnesium Hydrox/Alum Hydrox 30 Ml Oral.Susp) 30 ml PO Q6H PRN PRN Reason: Heartburn/Nausea Amlodipine Besylate (Amlodipine Besylate 2.5 Mg Tablet) 2.5 mg PO DAILY [facility]; Protocol Last Admin: 04/10/23 08:52 Dose: 2.5 mg Donepezil HCl (Donepezil Hcl 10 Mg Tablet) 10 mg PO DAILY [facility] Last Admin: 04/10/23 08:52 Dose: 10 mg Fenofibrate (Fenofibrate 160 Mg Tablet) 160 mg PO DAILY [facility] Last Admin: 04/10/23 08:52 Dose: 160 mg Magnesium Hydroxide (Milk Of Magnesia 30 Ml Oral.Susp) 30 ml PO DAILY PRN PRN Reason: Constipation Memantine (Memantine Hcl 5 Mg Tablet) 5 mg PO DAILY [facility] Last Admin: 04/10/23 08:53 Dose: 5 mg Metoprolol Succinate (Metoprolol Succinate Er 100 Mg Tab.Er.24h) 100 mg PO DAILY [facility]; Protocol Last Admin: 04/10/23 08:53 Dose: 100 mg Risperidone (Risperidone 0.5 Mg Tablet) 0.5 mg PO BID [facility] Last Admin: 04/10/23 08:53 Dose: 0.5 mg Sertraline HCl (Sertraline Hcl 25 Mg Tablet) 25 mg PO DAILY [facility] Last Admin: 04/10/23 08:52 Dose: 25 mg Spironolactone (Spironolactone 25 Mg Tablet) 25 mg PO DAILY [facility]; Protocol Last Admin: 04/10/23 08:52 Dose: 25 mg Allergies Allergies Allergy/AdvReac Type Severity Reaction Status Date / Time No Known Allergies Allergy Verified 04/03/23 22:02 Assessment & Plan Assessment & Plan (1) Routine history and physical examination of adult: Status: Acute Code(s): Z00.00 - Encounter for general adult medical examination without abnormal findings Plan Pt is a 78-year-old female with a PMH significant for HTN, HLD, and Alzheimer's dementia who is admitted to [facility] for increased agitation and disorgazined thought. Medical consult for admission H&P. Attempted to interview and examine pt, but she refused to answer questions or allow physical examination. Mood disorder Plan as per psychiatry Alzheimer's demetia Unclear if at baseline CT on 03/27/2023 negative for acute intracranial abnormalities CT here on 04/04/2023 showed no evidence of acute intracranial hemorrhage or edematous territorial infarction Continue donepezil Left bundle branch block Appears chronic Continue metoprolol HLD Continue fenofibrate HTN BP control acceptible on current therapies Continue amlodipine, spironolactone Thank you for allowing us to participate in the care of this patient. Signing off at this time. Please let us know if there are any acute complaints or questions. Plan 1. Gather collateral information. 2. Continue with medical work-out. 3. Increase Aricept up to 10 mg to target dementia. 4. Start Namenda 5 mg p.o. daily on April 09. Reason for continued inpatient stay Substantial Risk for: inability to function, rapid decompensation and med/psych decompensation Time Spent With Patient Time: Total time managing care of this patient today _20___ minutes.
[2023-04-10 18:00] VITALS: BP 99/53; PULSE 64; RESP 18; TEMP 36.2; O2SAT 98
[2023-04-11 08:00] VITALS: BP 117/67; PULSE 66; RESP 18; TEMP 36.6; O2SAT 98
[2023-04-11] MEDS: Metoprolol Succinate ER 100 MG TAB.ER.24H PO (08:20)
[2023-04-11] MEDS: amLODIPine Besylate 2.5 MG TABLET PO (08:20)
[2023-04-11] MEDS: Fenofibrate 160 MG TABLET PO (08:20)
[2023-04-11] MEDS: Donepezil HCl 10 MG TABLET PO (08:20)
[2023-04-11] MEDS: risperiDONE 0.5 MG TABLET PO ×2 (08:20→14:31)
[2023-04-11] MEDS: Spironolactone 25 MG TABLET PO (08:21)
[2023-04-11] MEDS: Memantine HCl 5 MG TABLET PO ×3 (08:21→21:13)
[2023-04-11] MEDS: Sertraline HCL 25 MG TABLET PO (08:21)
--- NOTE | 2023-04-11 09:56 | HO.PSYCHPN ---
Subjective Subjective Date of Service: 04/11/23 Reason For Visit: F03.91 Dementia with behavioral disturbances Subjective Notes: Conditional Voluntary Interim History: The nursing staff reported the patient did not have any assaultive behaviors, she slept 8 hours and she had good appetite. She looks confused but easily redirectable. The social work case manager reported that we will have a family meeting over soon at 14:00. On interview the patient is pleasantly confused no evidence of behavioral disturbances so far. Mental Status Exam Mental Status Exam Patient Appearance: Appropriate Patient Orientation: Person and Situation Level of Consciousness: Awake and Appropriate Patient Behavior: Guarded and Passive Mood Description: Withdrawn and Constricted Affect Description: Calm Patient Cognition Impaired: Yes Ability to Follow Directions: Good Speech Pattern: Clear Hallucinations: None Delusions: Paranoid Ideation Thought Process: Distracted and Slowed Thinking Thought Content: positive for [place] and positive for Poverty of Content Judgement: Fair Diagnostics Vital Signs (24Hr): Vital Signs - 24 hr 04/10/23 18:00 04/11/23 08:00 Temperature 97.1 F 97.9 F Pulse Rate 64 66 Respiratory Rate 18 18 Blood Pressure 99/53 L 117/67 Pulse Oximetry 98 98 Oxygen Delivery Method Room Air Room Air BMI result Body Mass Index 19.8 Labs 04/05/23 08:04 04/05/23 08:04 Imaging Radiology Impressions: ITS Impressions Head CT 04/04/23 11:19 IMPRESSION: 1. No evidence of acute intracranial hemorrhage or edematous territorial infarction. 2. Moderate underlying microangiopathy and generalized cerebral volume loss. 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 Medications Medications Current Medications Acetaminophen (Acetaminophen 325 Mg Tablet) 650 mg PO Q6H PRN PRN Reason: Headache/Pain Mild Scale (1-3) Al Hydroxide/Mg Hydroxide (Magnesium Hydrox/Alum Hydrox 30 Ml Oral.Susp) 30 ml PO Q6H PRN PRN Reason: Heartburn/Nausea Amlodipine Besylate (Amlodipine Besylate 2.5 Mg Tablet) 2.5 mg PO DAILY [facility]; Protocol Last Admin: 04/11/23 08:20 Dose: 2.5 mg Donepezil HCl (Donepezil Hcl 10 Mg Tablet) 10 mg PO DAILY [facility] Last Admin: 04/11/23 08:20 Dose: 10 mg Fenofibrate (Fenofibrate 160 Mg Tablet) 160 mg PO DAILY [facility] Last Admin: 04/11/23 08:20 Dose: 160 mg Magnesium Hydroxide (Milk Of Magnesia 30 Ml Oral.Susp) 30 ml PO DAILY PRN PRN Reason: Constipation Memantine (Memantine Hcl 5 Mg Tablet) 5 mg PO BID [facility] Last Admin: 04/11/23 09:14 Dose: 5 mg Metoprolol Succinate (Metoprolol Succinate Er 100 Mg Tab.Er.24h) 100 mg PO DAILY [facility]; Protocol Last Admin: 04/11/23 08:20 Dose: 100 mg Risperidone (Risperidone 0.5 Mg Tablet) 0.5 mg PO BID [facility] Last Admin: 04/11/23 08:20 Dose: 0.5 mg Sertraline HCl (Sertraline Hcl 25 Mg Tablet) 25 mg PO DAILY [facility] Last Admin: 04/11/23 08:21 Dose: 25 mg Spironolactone (Spironolactone 25 Mg Tablet) 25 mg PO DAILY [facility]; Protocol Last Admin: 04/11/23 08:21 Dose: 25 mg Allergies Allergies Allergy/AdvReac Type Severity Reaction Status Date / Time No Known Allergies Allergy Verified 04/03/23 22:02 Assessment & Plan Assessment & Plan (1) Routine history and physical examination of adult: Status: Acute Code(s): Z00.00 - Encounter for general adult medical examination without abnormal findings Plan Pt is a 78-year-old female with a PMH significant for HTN, HLD, and Alzheimer's dementia who is admitted to [facility] for increased agitation and disorgazined thought. Medical consult for admission H&P. Attempted to interview and examine pt, but she refused to answer questions or allow physical examination. Mood disorder Plan as per psychiatry Alzheimer's demetia Unclear if at baseline CT on 03/27/2023 negative for acute intracranial abnormalities CT here on 04/04/2023 showed no evidence of acute intracranial hemorrhage or edematous territorial infarction Continue donepezil Left bundle branch block Appears chronic Continue metoprolol HLD Continue fenofibrate HTN BP control acceptible on current therapies Continue amlodipine, spironolactone Thank you for allowing us to participate in the care of this patient. Signing off at this time. Please let us know if there are any acute complaints or questions. Plan 1. Gather collateral information. 2. Continue with medical work-out. 3. Increase Aricept up to 10 mg to target dementia. 4. Start Namenda 5 mg p.o. daily on April 09. Increase Namenda to 5 mg p.o. b.i.d. on April 11. 5. Family meeting today at 2 pm. Reason for continued inpatient stay Substantial Risk for: inability to function, rapid decompensation and med/psych decompensation Time Spent With Patient Time: Total time managing care of this patient today __20__ minutes.
[2023-04-12 07:00] VITALS: BMI 19.6
[2023-04-12 08:25] VITALS: BP 120/68; PULSE 61; RESP 16; TEMP 35.8; O2SAT 98
[2023-04-12] MEDS: Memantine HCl 5 MG TABLET PO (08:40)
[2023-04-12] MEDS: Fenofibrate 160 MG TABLET PO (08:41)
[2023-04-12] MEDS: Donepezil HCl 10 MG TABLET PO (08:41)
[2023-04-12] MEDS: amLODIPine Besylate 2.5 MG TABLET PO (08:41)
[2023-04-12] MEDS: Sertraline HCL 25 MG TABLET PO (08:41)
[2023-04-12] MEDS: Spironolactone 25 MG TABLET PO (08:41)
[2023-04-12] MEDS: risperiDONE 0.5 MG TABLET PO ×2 (08:41→14:43)
[2023-04-12] MEDS: Metoprolol Succinate ER 100 MG TAB.ER.24H PO (08:42)
--- NOTE | 2023-04-12 14:34 | P.PNPSI_ITS ---
Subjective Subjective Date of Service: 04/12/23 Reason For Visit: F03.91 Dementia with behavioral disturbances Subjective Notes: Conditional Voluntary Interim History: The nursing staff reported the patient had been fully compliant with treatment she is pleasantly confused but redirectable. Yesterday we had a family meeting within the manager social responsibility the daughter and her in 1 her back home but they are not sure if it will be safe. On interview the patient is pleasantly confused, I am ordering blood work for tomorrow and we increase Namenda to 10 mg p.o. b.i.d. and keep Aricept 10 mg p.o. q.a.m. to target dementia. Mental Status Exam Mental Status Exam Patient Appearance: Well Grooomed and Appropriate Patient Orientation: Person and Situation Level of Consciousness: Awake and Appropriate Patient Behavior: Guarded and Passive Mood Description: Withdrawn Affect Description: Constricted Patient Cognition Impaired: Yes Ability to Follow Directions: Good Speech Pattern: Clear Hallucinations: None Delusions: Not Present Thought Process: Distracted and Linear Thought Content: positive for [place] and positive for Poverty of Content Judgement: Fair Diagnostics Vital Signs (24Hr): Vital Signs - 24 hr 04/12/23 08:25 Temperature 96.4 F L Pulse Rate 61 Respiratory Rate 16 Blood Pressure 120/68 Pulse Oximetry 98 Oxygen Delivery Method Room Air BMI result Body Mass Index 19.6 Labs 04/05/23 08:04 04/05/23 08:04 Imaging Radiology Impressions: ITS Impressions Head CT 04/04/23 11:19 IMPRESSION: 1. No evidence of acute intracranial hemorrhage or edematous territorial infarction. 2. Moderate underlying microangiopathy and generalized cerebral volume loss. 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 Medications Medications Current Medications Acetaminophen (Acetaminophen 325 Mg Tablet) 650 mg PO Q6H PRN PRN Reason: Headache/Pain Mild Scale (1-3) Al Hydroxide/Mg Hydroxide (Magnesium Hydrox/Alum Hydrox 30 Ml Oral.Susp) 30 ml PO Q6H PRN PRN Reason: Heartburn/Nausea Amlodipine Besylate (Amlodipine Besylate 2.5 Mg Tablet) 2.5 mg PO DAILY [facility]; Protocol Last Admin: 04/12/23 08:41 Dose: 2.5 mg Donepezil HCl (Donepezil Hcl 10 Mg Tablet) 10 mg PO DAILY [facility]S [facility] Last Admin: 04/12/23 08:41 Dose: 10 mg Fenofibrate (Fenofibrate 160 Mg Tablet) 160 mg PO DAILY [facility] 234 BEDS AT [facility] Last Admin: 04/12/23 08:41 Dose: 160 mg Magnesium Hydroxide (Milk Of Magnesia 30 Ml Oral.Susp) 30 ml PO DAILY PRN PRN Reason: Constipation Memantine (Memantine Hcl 10 Mg Tablet) 10 mg PO BID [facility] Metoprolol Succinate (Metoprolol Succinate Er 100 Mg Tab.Er.24h) 100 mg PO DAILY [facility]; Protocol Last Admin: 04/12/23 08:42 Dose: 100 mg Risperidone (Risperidone 0.5 Mg Tablet) 0.5 mg PO BID@0800,1500 [facility] 234 BEDS AT [facility] Last Admin: 04/12/23 08:41 Dose: 0.5 mg Sertraline HCl (Sertraline Hcl 25 Mg Tablet) 25 mg PO DAILY [facility] 234 B[facility]S AT [facility] Last Admin: 04/12/23 08:41 Dose: 25 mg Spironolactone (Spironolactone 25 Mg Tablet) 25 mg PO DAILY [facility] 234 [facility]S AT [facility]; Protocol Last Admin: 04/12/23 08:41 Dose: 25 mg Allergies Allergies Allergy/AdvReac Type Severity Reaction Status Date / Time No Known Allergies Allergy Verified 04/03/23 22:02 Assessment & Plan Assessment & Plan (1) Routine history and physical examination of adult: Status: Acute Code(s): Z00.00 - Encounter for general adult medical examination without abnormal findings Plan Pt is a 78-year-old female with a PMH significant for HTN, HLD, and Alzheimer's dementia who is admitted to [facility] for increased agitation and disorgazined thought. Medical consult for admission H&P. Attempted to interview and examine pt, but she refused to answer questions or allow physical examination. Mood disorder Plan as per psychiatry Alzheimer's demetia Unclear if at baseline CT on 03/27/2023 negative for acute intracranial abnormalities CT here on 04/04/2023 showed no evidence of acute intracranial hemorrhage or edematous territorial infarction Continue donepezil Left bundle branch block Appears chronic Continue metoprolol HLD Continue fenofibrate HTN BP control acceptible on current therapies Continue amlodipine, spironolactone Thank you for allowing us to participate in the care of this patient. Signing off at this time. Please let us know if there are any acute complaints or questions. Plan 1. Gather collateral information. 2. Continue with medical work-out. 3. Increase Aricept up to 10 mg to target dementia. 4. Start Namenda 5 mg p.o. daily on April 09. Increase Namenda to 5 mg p.o. b.i.d. on April 11. Namenda was increased at 10 mg p.o. b.i.d. on 04/12 5. Family meeting today at 2 pm. Reason for continued inpatient stay Substantial Risk for: inability to function, rapid decompensation and med/psych decompensation Time Spent With Patient Time: Total time managing care of this patient today _20___ minutes.
[2023-04-12 18:00] VITALS: BP 119/56; PULSE 67; RESP 16; TEMP 36.8; O2SAT 97
[2023-04-12] MEDS: Memantine HCl 10 MG TABLET PO (20:51)
[2023-04-12] MEDS: Nystatin Cream 15 GM TUBE 1 APPL TOPICAL (20:54)
[2023-04-13 08:10] VITALS: BP 129/58; PULSE 80; RESP 18; TEMP 36; O2SAT 97
[2023-04-13 08:38] LABS: MANUAL DIFF FLAG NO
[2023-04-13 08:40] LABS: Basophils Absolute Auto 0.1 X10*3/uL (0.0-0.2); Basophils Percent Auto 0.9 % (0-2); Eosinophils Absolute Auto 0.1 X10*3/uL (0.0-0.4); Eosinophils Percent Auto 1.1 % (0-4); Hematocrit 40.2 % (37.0-47.0); Imm Gran Abs Auto 0.08 X10*3/uL (0.00-0.03); Imm Gran Pct Auto 1.1 % (0.0-0.4); Lymphocytes Absolute Auto 1.5 X10*3/uL (1.2-4.9); Lymphocytes Percent Auto 20.1 % (20-40); Mean Corpuscular HGB Conc 34.8 g/dl (31.0-35.0); Mean Corpuscular Hemoglobin 31.6 pg (27.0-33.0); Mean Corpuscular Volume 90.7 fL (80.0-98.0); Mean Platelet Volume 9.9 fL (9.4-12.3); Monocytes Absolute Auto 0.5 X10*3/uL (0.1-1.2); Monocytes Percent Auto 6.4 % (2-11); Neutrophils Absolute Auto 5.2 x10*3/uL (2.0-8.3); Neutrophils Percent Auto 70.4 % (45-73); Platelet Count 284 X10*3/uL (160-400); Red Blood Count 4.43 X10*6/uL (4.20-5.50); Red Cell Distribution Width 12.9 % (11.0-16.0); White Blood Count 7.4 X10*3/uL (4.8-10.8)
[2023-04-13] MEDS: risperiDONE 0.5 MG TABLET PO ×2 (08:47→14:20)
[2023-04-13] MEDS: Fenofibrate 160 MG TABLET PO (08:47)
[2023-04-13] MEDS: Metoprolol Succinate ER 100 MG TAB.ER.24H PO (08:47)
[2023-04-13] MEDS: Donepezil HCl 10 MG TABLET PO (08:48)
[2023-04-13] MEDS: amLODIPine Besylate 2.5 MG TABLET PO (08:48)
[2023-04-13] MEDS: Sertraline HCL 25 MG TABLET PO (08:48)
[2023-04-13] MEDS: Memantine HCl 10 MG TABLET PO ×2 (08:48→20:59)
[2023-04-13] MEDS: Spironolactone 25 MG TABLET PO (08:48)
[2023-04-13 08:52] LABS: Estimated Average Glucose 94 mg/dL; Hemoglobin A1c % 4.9 %
[2023-04-13] MEDS: Nystatin Cream 15 GM TUBE 1 APPL TOPICAL ×2 (08:53→21:00)
[2023-04-13 09:03] LABS: Anion Gap 14 (12-20); Blood Urea Nitrogen 28 mg/dL (9-16); Calcium 9.7 mg/dL (8.4-10.2); Carbon Dioxide 22 mmol/L (22-29); Chloride 109 mmol/L (96-108); Cholesterol 120 mg/dL; Creatinine Clr Calc Pharmacy 34.9; Estimated Glomerular Filt Rate 49; Glucose Random 143 mg/dL (60-115); HDL Cholesterol 47 mg/dL; LDL Cholesterol Calculated 66 mg/dl; Potassium 3.6 mmol/L (3.3-5.1); Sodium 141 mmol/L (135-145); Triglycerides 39 mg/dL
--- NOTE | 2023-04-13 09:38 | HO.PSYCHPN ---
Subjective Subjective Date of Service: 04/13/23 Reason For Visit: F03.91 Dementia with behavioral disturbances Subjective Notes: Conditional Voluntary Interim History: The nursing staff reported the patient ate 100% of her meals, she looks confused but easily redirectable. She slept well last night. On interview the patient denies new symptoms she is pleasantly confused and easily redirectable. We will start working on discharge planning. Mental Status Exam Mental Status Exam Patient Appearance: Well Grooomed and Appropriate Patient Orientation: Person and Situation Level of Consciousness: Awake and Appropriate Patient Behavior: Guarded and Passive Mood Description: Withdrawn Affect Description: Constricted Patient Cognition Impaired: Yes Ability to Follow Directions: Good Speech Pattern: Clear Hallucinations: None Delusions: Not Present Thought Process: Distracted and Evasive Thought Content: positive for [place], positive for Poverty of Content and positive for Thought Blocking Judgement: Fair Diagnostics Vital Signs (24Hr): Vital Signs - 24 hr 04/12/23 18:00 04/13/23 08:10 Temperature 98.3 F 96.8 F Pulse Rate 67 80 Respiratory Rate 16 18 Blood Pressure 119/56 L 129/58 L Pulse Oximetry 97 97 Oxygen Delivery Method Room Air Room Air BMI result Body Mass Index 19.6 Labs 04/13/23 08:24 04/13/23 08:24 Labs: Laboratory Results - last 48 hr 04/13/23 04/13/23 04/13/23 08:24 08:24 08:24 WBC 7.4 RBC 4.43 Hgb 14.0 Hct 40.2 MCV 90.7 MCH 31.6 MCHC 34.8 RDW 12.9 Plt Count 284 MPV 9.9 Immature Gran % (Auto) 1.1 H Neut % (Auto) 70.4 Lymph % (Auto) 20.1 Grand % (Auto) 6.4 Eos % (Auto) 1.1 Baso % (Auto) 0.9 Lymph # (Auto) 1.5 Grand # (Auto) 0.5 Eos # (Auto) 0.1 Baso # (Auto) 0.1 Abs Immat Gran (auto) 0.08 H Absolute Neuts (auto) 5.2 Absolute Nucleated RBC 0.000 Nucleated RBC % (auto) 0.0 Sodium 141 Potassium 3.6 Chloride 109 H Carbon Dioxide 22 Anion Gap 14 BUN 28 H Creatinine 1.07 Estim Creat Clear Calc 34.9 Estimated GFR 49 Random Glucose 143 H Estimat Average Glucose 94 Hemoglobin A1c % 4.9 Calcium 9.7 Triglycerides 39 Cholesterol 120 LDL Cholesterol, Calc 66 HDL Cholesterol 47 Imaging Radiology Impressions: ITS Impressions Head CT 04/04/23 11:19 IMPRESSION: 1. No evidence of acute intracranial hemorrhage or edematous territorial infarction. 2. Moderate underlying microangiopathy and generalized cerebral volume loss. 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 Medications Medications Current Medications Acetaminophen (Acetaminophen 325 Mg Tablet) 650 mg PO Q6H PRN PRN Reason: Headache/Pain Mild Scale (1-3) Al Hydroxide/Mg Hydroxide (Magnesium Hydrox/Alum Hydrox 30 Ml Oral.Susp) 30 ml PO Q6H PRN PRN Reason: Heartburn/Nausea Amlodipine Besylate (Amlodipine Besylate 2.5 Mg Tablet) 2.5 mg PO DAILY [facility]; Protocol Last Admin: 04/13/23 08:48 Dose: 2.5 mg Donepezil HCl (Donepezil Hcl 10 Mg Tablet) 10 mg PO DAILY [facility] Last Admin: 04/13/23 08:48 Dose: 10 mg Fenofibrate (Fenofibrate 160 Mg Tablet) 160 mg PO DAILY [facility] Last Admin: 04/13/23 08:47 Dose: 160 mg Magnesium Hydroxide (Milk Of Magnesia 30 Ml Oral.Susp) 30 ml PO DAILY PRN PRN Reason: Constipation Memantine (Memantine Hcl 10 Mg Tablet) 10 mg PO BID [facility] Last Admin: 04/13/23 08:48 Dose: 10 mg Metoprolol Succinate (Metoprolol Succinate Er 100 Mg Tab.Er.24h) 100 mg PO DAILY [facility]; Protocol Last Admin: 04/13/23 08:47 Dose: 100 mg Nystatin (Nystatin Cream 15 Gm Tube) 1 appl TOPICAL BID [facility]; Protocol Last Admin: 04/13/23 08:53 Dose: 1 appl Risperidone (Risperidone 0.5 Mg Tablet) 0.5 mg PO BID@0800,1500 [facility] Last Admin: 04/13/23 08:47 Dose: 0.5 mg Sertraline HCl (Sertraline Hcl 25 Mg Tablet) 25 mg PO DAILY [facility] Last Admin: 04/13/23 08:48 Dose: 25 mg Spironolactone (Spironolactone 25 Mg Tablet) 25 mg PO DAILY [facility]; Protocol Last Admin: 04/13/23 08:48 Dose: 25 mg Allergies Allergies Allergy/AdvReac Type Severity Reaction Status Date / Time No Known Allergies Allergy Verified 04/03/23 22:02 Assessment & Plan Assessment & Plan (1) Routine history and physical examination of adult: Status: Acute Code(s): Z00.00 - Encounter for general adult medical examination without abnormal findings Plan Pt is a 78-year-old female with a PMH significant for HTN, HLD, and Alzheimer's dementia who is admitted to [facility] for increased agitation and disorgazined thought. Medical consult for admission H&P. Attempted to interview and examine pt, but she refused to answer questions or allow physical examination. Mood disorder Plan as per psychiatry Alzheimer's demetia Unclear if at baseline CT on 03/27/2023 negative for acute intracranial abnormalities CT here on 04/04/2023 showed no evidence of acute intracranial hemorrhage or edematous territorial infarction Continue donepezil Left bundle branch block Appears chronic Continue metoprolol HLD Continue fenofibrate HTN BP control acceptible on current therapies Continue amlodipine, spironolactone Thank you for allowing us to participate in the care of this patient. Signing off at this time. Please let us know if there are any acute complaints or questions. Plan 1. Gather collateral information. 2. Continue with medical work-out. 3. Increase Aricept up to 10 mg to target dementia. 4. Start Namenda 5 mg p.o. daily on April 09. Increase Namenda to 5 mg p.o. b.i.d. on April 11. Namenda was increased at 10 mg p.o. b.i.d. on 04/12 5. Family meeting today at 2 pm. Reason for continued inpatient stay Substantial Risk for: inability to function, rapid decompensation and med/psych decompensation Time Spent With Patient Time: Total time managing care of this patient today __20__ minutes.
--- NOTE | 2023-04-13 13:31 | MHC.CLN ---
F/U DIET=REGULAR. ENSURE TID PROVIDES 1050 KCALS, 60 G PROTEIN. HX POOR PO. DID NOT EAT BREAKFAST OR LUNCH TODAY. ENCOURAGE INTAKE AT [facility] TO FOLLOW FOR INTAKE AND WEIGHT.
[2023-04-13 18:00] VITALS: BP 107/51; PULSE 62; RESP 16; TEMP 36.4; O2SAT 96
[2023-04-14 08:15] VITALS: BP 110/59; PULSE 63; RESP 18; TEMP 36.6; O2SAT 96
[2023-04-14] MEDS: Sertraline HCL 25 MG TABLET PO (09:20)
[2023-04-14] MEDS: risperiDONE 0.5 MG TABLET PO ×2 (09:20→15:25)
[2023-04-14] MEDS: Nystatin Cream 15 GM TUBE 1 APPL TOPICAL ×2 (09:20→21:19)
[2023-04-14] MEDS: Memantine HCl 10 MG TABLET PO ×2 (09:20→21:17)
[2023-04-14] MEDS: Spironolactone 25 MG TABLET PO (09:20)
[2023-04-14] MEDS: Fenofibrate 160 MG TABLET PO (09:21)
[2023-04-14] MEDS: Metoprolol Succinate ER 100 MG TAB.ER.24H PO (09:21)
[2023-04-14] MEDS: Donepezil HCl 10 MG TABLET PO (09:21)
[2023-04-14] MEDS: amLODIPine Besylate 2.5 MG TABLET PO (09:21)
--- NOTE | 2023-04-14 14:10 | HO.PSYCHPN ---
Subjective Subjective Date of Service: 04/14/23 Reason For Visit: F03.91 Dementia with behavioral disturbances Subjective Notes: Conditional Voluntary Healthcare Proxy: Yes Medical Problems Affecting Mental Status: No Interim History: met with patient. Discussed with Nursing. Chart reviewed. Pleasant. Eating meals with cuing. Adherent with medications. Patient presents as being pleasant. Reports feeling well cared for. Sleep has been good. States she has been here for a couple of years . Medication Compliance: Yes Side effects from medications: No Attending Groups: Intermittent Review of Systems Acute medical concerns: No Review of Systems Review of Systems Yes Unobtainable due to mental status Mental Status Exam Mental Status Exam Patient Appearance: Well Grooomed and Appropriate Patient Orientation: Person Level of Consciousness: Awake and Appropriate Patient Behavior: Guarded and Passive Mood Description: Withdrawn Affect Description: Constricted Patient Cognition Impaired: Yes Ability to Follow Directions: Good Speech Pattern: Clear Hallucinations: None Delusions: Not Present Thought Process: Distracted and Evasive Thought Content: positive for [place], positive for Poverty of Content and positive for Thought Blocking Judgement: Fair Diagnostics Vital Signs (24Hr): Vital Signs - 24 hr 04/13/23 18:00 04/14/23 08:15 Temperature 97.5 F 97.9 F Pulse Rate 62 63 Respiratory Rate 16 18 Blood Pressure 107/51 L 110/59 L Pulse Oximetry 96 96 Oxygen Delivery Method Room Air Room Air BMI result Body Mass Index 19.6 Labs 04/13/23 08:24 04/13/23 08:24 Labs: Laboratory Results - last 48 hr 04/13/23 04/13/23 04/13/23 08:24 08:24 08:24 WBC 7.4 RBC 4.43 Hgb 14.0 Hct 40.2 MCV 90.7 MCH 31.6 MCHC 34.8 RDW 12.9 Plt Count 284 MPV 9.9 Immature Gran % (Auto) 1.1 H Neut % (Auto) 70.4 Lymph % (Auto) 20.1 [place] % (Auto) 6.4 Eos % (Auto) 1.1 Baso % (Auto) 0.9 Lymph # (Auto) 1.5 [place] # (Auto) 0.5 Eos # (Auto) 0.1 Baso # (Auto) 0.1 Abs Immat Gran (auto) 0.08 H Absolute Neuts (auto) 5.2 Absolute Nucleated RBC 0.000 Nucleated RBC % (auto) 0.0 Sodium 141 Potassium 3.6 Chloride 109 H Carbon Dioxide 22 Anion Gap 14 BUN 28 H Creatinine 1.07 Estim Creat Clear Calc 34.9 Estimated GFR 49 Random Glucose 143 H Estimat Average Glucose 94 Hemoglobin A1c % 4.9 Calcium 9.7 Triglycerides 39 Cholesterol 120 LDL Cholesterol, Calc 66 HDL Cholesterol 47 Imaging Radiology Impressions: ITS Impressions Head CT 04/04/23 11:19 IMPRESSION: 1. No evidence of acute intracranial hemorrhage or edematous territorial infarction. 2. Moderate underlying microangiopathy and generalized cerebral volume loss. 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 Medications Medications Current Medications Acetaminophen (Acetaminophen 325 Mg Tablet) 650 mg PO Q6H PRN PRN Reason: Headache/Pain Mild Scale (1-3) Al Hydroxide/Mg Hydroxide (Magnesium Hydrox/Alum Hydrox 30 Ml Oral.Susp) 30 ml PO Q6H PRN PRN Reason: Heartburn/Nausea Amlodipine Besylate (Amlodipine Besylate 2.5 Mg Tablet) 2.5 mg PO DAILY [facility]; Protocol Last Admin: 04/14/23 09:21 Dose: 2.5 mg Donepezil HCl (Donepezil Hcl 10 Mg Tablet) 10 mg PO DAILY [facility] Last Admin: 04/14/23 09:21 Dose: 10 mg Fenofibrate (Fenofibrate 160 Mg Tablet) 160 mg PO DAILY [facility] Last Admin: 04/14/23 09:21 Dose: 160 mg Magnesium Hydroxide (Milk Of Magnesia 30 Ml Oral.Susp) 30 ml PO DAILY PRN PRN Reason: Constipation Memantine (Memantine Hcl 10 Mg Tablet) 10 mg PO BID [facility] Last Admin: 04/14/23 09:20 Dose: 10 mg Metoprolol Succinate (Metoprolol Succinate Er 100 Mg Tab.Er.24h) 100 mg PO DAILY [facility]; Protocol Last Admin: 04/14/23 09:21 Dose: 100 mg Nystatin (Nystatin Cream 15 Gm Tube) 1 appl TOPICAL BID [facility]; Protocol Last Admin: 04/13/23 21:00 Dose: 1 appl Risperidone (Risperidone 0.5 Mg Tablet) 0.5 mg PO BID@0800,1500 [facility] Last Admin: 04/14/23 09:20 Dose: 0.5 mg Sertraline HCl (Sertraline Hcl 25 Mg Tablet) 25 mg PO DAILY [facility] Last Admin: 04/14/23 09:20 Dose: 25 mg Spironolactone (Spironolactone 25 Mg Tablet) 25 mg PO DAILY [facility]; Protocol Last Admin: 04/14/23 09:20 Dose: 25 mg Allergies Allergies Allergy/AdvReac Type Severity Reaction Status Date / Time No Known Allergies Allergy Verified 04/03/23 22:02 Assessment & Plan Assessment & Plan (1) Routine history and physical examination of adult: Status: Acute Code(s): Z00.00 - Encounter for general adult medical examination without abnormal findings Plan Pt is a 78-year-old female with a PMH significant for HTN, HLD, and Alzheimer's dementia who is admitted to [facility] for increased agitation and disorgazined thought. Medical consult for admission H&P. Attempted to interview and examine pt, but she refused to answer questions or allow physical examination. Mood disorder Plan as per psychiatry Alzheimer's demetia Unclear if at baseline CT on 03/27/2023 negative for acute intracranial abnormalities CT here on 04/04/2023 showed no evidence of acute intracranial hemorrhage or edematous territorial infarction Continue donepezil Left bundle branch block Appears chronic Continue metoprolol HLD Continue fenofibrate HTN BP control acceptible on current therapies Continue amlodipine, spironolactone Thank you for allowing us to participate in the care of this patient. Signing off at this time. Please let us know if there are any acute complaints or questions. Plan 1. Gather collateral information. 2. Continue with medical work-out. 3. Increase Aricept up to 10 mg to target dementia. 4. Start Namenda 5 mg p.o. daily on April 09. Increase Namenda to 5 mg p.o. b.i.d. on April 11. Namenda was increased at 10 mg p.o. b.i.d. on 04/12 5. Family meeting happened 04/1104/14/2023: No changes to current plan Reason for continued inpatient stay Substantial Risk for: inability to function Time Spent With Patient Time: Total time managing care of this patient today ____ minutes.
[2023-04-14 18:00] VITALS: BP 129/62; PULSE 61; RESP 16; TEMP 36.2; O2SAT 98
[2023-04-15] MEDS: Nystatin Cream 15 GM TUBE 1 APPL TOPICAL (08:09)
[2023-04-15] MEDS: Metoprolol Succinate ER 100 MG TAB.ER.24H PO (08:10)
[2023-04-15] MEDS: Spironolactone 25 MG TABLET PO (08:10)
[2023-04-15] MEDS: amLODIPine Besylate 2.5 MG TABLET PO (08:10)
[2023-04-15] MEDS: Memantine HCl 10 MG TABLET PO ×2 (08:10→20:53)
[2023-04-15] MEDS: Donepezil HCl 10 MG TABLET PO (08:10)
[2023-04-15] MEDS: risperiDONE 0.5 MG TABLET PO ×2 (08:10→15:36)
[2023-04-15] MEDS: Sertraline HCL 25 MG TABLET PO (08:10)
[2023-04-15] MEDS: Fenofibrate 160 MG TABLET PO (08:10)
[2023-04-15 08:20] VITALS: BP 116/73; PULSE 63; RESP 18; TEMP 36; O2SAT 97
--- NOTE | 2023-04-15 12:42 | HO.PSYCHPN ---
Subjective Subjective Date of Service: 04/15/23 Reason For Visit: F03.91 Dementia with behavioral disturbances Subjective Notes: Conditional Voluntary Healthcare Proxy: Yes Interim History: met with patient. Discussed with Nursing. Pleasant. Ate breakfast. Adherent with medications. Patient presents as being pleasant things are great . Reports feeling well cared for. Sleep has been good. No evidence of depression SI HI or agitation Medication Compliance: Yes Side effects from medications: No Attending Groups: Intermittent Review of Systems Review of Systems Yes Unobtainable due to mental status Mental Status Exam Mental Status Exam Patient Appearance: Well Grooomed and Appropriate Patient Orientation: Person Level of Consciousness: Awake and Appropriate Patient Behavior: Guarded and Passive Mood Description: Withdrawn Affect Description: Constricted Patient Cognition Impaired: Yes Ability to Follow Directions: Good Speech Pattern: Clear Diagnostics Vital Signs (24Hr): Vital Signs - 24 hr 04/14/23 18:00 04/15/23 08:20 Temperature 97.2 F 96.8 F Pulse Rate 61 63 Respiratory Rate 16 18 Blood Pressure 129/62 116/73 Pulse Oximetry 98 97 Oxygen Delivery Method Room Air Room Air BMI result Body Mass Index 19.6 Labs 04/13/23 08:24 04/13/23 08:24 Imaging Radiology Impressions: ITS Impressions Head CT 04/04/23 11:19 IMPRESSION: 1. No evidence of acute intracranial hemorrhage or edematous territorial infarction. 2. Moderate underlying microangiopathy and generalized cerebral volume loss. 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 Medications Medications Current Medications Acetaminophen (Acetaminophen 325 Mg Tablet) 650 mg PO Q6H PRN PRN Reason: Headache/Pain Mild Scale (1-3) Al Hydroxide/Mg Hydroxide (Magnesium Hydrox/Alum Hydrox 30 Ml Oral.Susp) 30 ml PO Q6H PRN PRN Reason: Heartburn/Nausea Amlodipine Besylate (Amlodipine Besylate 2.5 Mg Tablet) 2.5 mg PO DAILY [facility]; Protocol Last Admin: 04/15/23 08:10 Dose: 2.5 mg Donepezil HCl (Donepezil Hcl 10 Mg Tablet) 10 mg PO DAILY [facility] Last Admin: 04/15/23 08:10 Dose: 10 mg Fenofibrate (Fenofibrate 160 Mg Tablet) 160 mg PO DAILY [facility] Last Admin: 04/15/23 08:10 Dose: 160 mg Magnesium Hydroxide (Milk Of Magnesia 30 Ml Oral.Susp) 30 ml PO DAILY PRN PRN Reason: Constipation Memantine (Memantine Hcl 10 Mg Tablet) 10 mg PO BID [facility] Last Admin: 04/15/23 08:10 Dose: 10 mg Metoprolol Succinate (Metoprolol Succinate Er 100 Mg Tab.Er.24h) 100 mg PO DAILY [facility]; Protocol Last Admin: 04/15/23 08:10 Dose: 100 mg Nystatin (Nystatin Cream 15 Gm Tube) 1 appl TOPICAL BID [facility]; Protocol Last Admin: 04/15/23 08:09 Dose: 1 appl Risperidone (Risperidone 0.5 Mg Tablet) 0.5 mg PO BID@0800,1500 [facility] Last Admin: 04/15/23 08:10 Dose: 0.5 mg Risperidone (Risperidone 0.5 Mg Tablet) 0.5 mg PO BEDTIME [facility] Last Admin: 04/15/23 03:49 Dose: Not Given Risperidone (Risperidone 0.5 Mg Tablet) 0.5 mg PO Q6H PRN PRN Reason: agitation, delirium, psychosis Last Admin: 04/14/23 23:03 Dose: 0.5 mg Sertraline HCl (Sertraline Hcl 25 Mg Tablet) 25 mg PO DAILY [facility] Last Admin: 04/15/23 08:10 Dose: 25 mg Spironolactone (Spironolactone 25 Mg Tablet) 25 mg PO DAILY [facility]; Protocol Last Admin: 04/15/23 08:10 Dose: 25 mg Trazodone HCl (Trazodone Hcl 25 Mg Halftab) 25 mg PO BEDTIME PRN PRN Reason: Insomnia Last Admin: 04/14/23 23:03 Dose: 25 mg Allergies Allergies Allergy/AdvReac Type Severity Reaction Status Date / Time No Known Allergies Allergy Verified 04/03/23 22:02 Assessment & Plan Assessment & Plan (1) Routine history and physical examination of adult: Status: Acute Code(s): Z00.00 - Encounter for general adult medical examination without abnormal findings Plan Pt is a 78-year-old female with a PMH significant for HTN, HLD, and Alzheimer's dementia who is admitted to [facility] for increased agitation and disorgazined thought. Medical consult for admission H&P. Attempted to interview and examine pt, but she refused to answer questions or allow physical examination. Mood disorder Plan as per psychiatry Alzheimer's demetia Unclear if at baseline CT on 03/27/2023 negative for acute intracranial abnormalities CT here on 04/04/2023 showed no evidence of acute intracranial hemorrhage or edematous territorial infarction Continue donepezil Left bundle branch block Appears chronic Continue metoprolol HLD Continue fenofibrate HTN BP control acceptible on current therapies Continue amlodipine, spironolactone Thank you for allowing us to participate in the care of this patient. Signing off at this time. Please let us know if there are any acute complaints or questions. Plan 1. Gather collateral information. 2. Continue with medical work-out. 3. Increase Aricept up to 10 mg to target dementia. 4. Start Namenda 5 mg p.o. daily on April 09. Increase Namenda to 5 mg p.o. b.i.d. on April 11. Namenda was increased at 10 mg p.o. b.i.d. on 04/12 5. Family meeting happened 04/1104/15/2023: No changes to current plan Reason for continued inpatient stay Substantial Risk for: inability to function Time Spent With Patient Time: Total time managing care of this patient today ____ minutes.
[2023-04-15 20:20] VITALS: BP 107/51; PULSE 63; RESP 18; TEMP 36.4; O2SAT 96
[2023-04-16 08:30] VITALS: BP 117/56; PULSE 63; RESP 16; TEMP 35.8; O2SAT 100
[2023-04-16] MEDS: Metoprolol Succinate ER 100 MG TAB.ER.24H PO (08:38)
[2023-04-16] MEDS: Donepezil HCl 10 MG TABLET PO (08:38)
[2023-04-16] MEDS: risperiDONE 0.5 MG TABLET PO ×2 (08:38→15:44)
[2023-04-16] MEDS: Memantine HCl 10 MG TABLET PO ×2 (08:38→20:19)
[2023-04-16] MEDS: Fenofibrate 160 MG TABLET PO (08:38)
[2023-04-16] MEDS: Nystatin Cream 15 GM TUBE 1 APPL TOPICAL (08:39)
[2023-04-16] MEDS: Sertraline HCL 25 MG TABLET PO (08:39)
[2023-04-16] MEDS: amLODIPine Besylate 2.5 MG TABLET PO (08:39)
[2023-04-16] MEDS: Spironolactone 25 MG TABLET PO (08:39)
--- NOTE | 2023-04-16 13:57 | MHC.CLN ---
F/U DIET=REGULAR. ENSURE TID PROVIDES 1050 KCALS, 60 G PROTEIN. TODAY, ATE 75% BREAKFAST AND 50% OF LUNCH. ENCOURAGE INTAKE AT ME[employer] [address]. RD TO MONITOR INTAKE AND WEIGHT.
--- NOTE | 2023-04-16 14:58 | HO.PSYCHPN ---
Subjective Subjective Date of Service: 04/16/23 Reason For Visit: F03.91 Dementia with behavioral disturbances Subjective Notes: Conditional Voluntary Interim History: The nursing staff reported the patient had been cooperative and pleasant. The occupational therapy reported that she is doing much better. On interview the patient denies new symptoms she is pleasantly confused easily redirectable. Most likely we will discharge her next Sunday or . Mental Status Exam Mental Status Exam Patient Appearance: Well Grooomed and Appropriate Patient Orientation: Person Level of Consciousness: Awake and Appropriate Patient Behavior: Appropriate Mood Description: Calm Affect Description: Constricted Patient Cognition Impaired: Yes Ability to Follow Directions: Good Speech Pattern: Clear Hallucinations: None Delusions: Not Present Thought Process: Illogical, Distracted and Slowed Thinking Thought Content: positive for [place], positive for [place] and positive for Poverty of Content Judgement: Fair Diagnostics Vital Signs (24Hr): Vital Signs - 24 hr 04/15/23 20:20 04/16/23 08:30 Temperature 97.5 F 96.5 F L Pulse Rate 63 63 Respiratory Rate 18 16 Blood Pressure 107/51 L 117/56 L Pulse Oximetry 96 100 Oxygen Delivery Method Room Air Room Air BMI result Body Mass Index 19.6 Labs 04/13/23 08:24 04/13/23 08:24 Imaging Radiology Impressions: ITS Impressions Head CT 04/04/23 11:19 IMPRESSION: 1. No evidence of acute intracranial hemorrhage or edematous territorial infarction. 2. Moderate underlying microangiopathy and generalized cerebral volume loss. 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 Medications Medications Current Medications Acetaminophen (Acetaminophen 325 Mg Tablet) 650 mg PO Q6H PRN PRN Reason: Headache/Pain Mild Scale (1-3) Al Hydroxide/Mg Hydroxide (Magnesium Hydrox/Alum Hydrox 30 Ml Oral.Susp) 30 ml PO Q6H PRN PRN Reason: Heartburn/Nausea Amlodipine Besylate (Amlodipine Besylate 2.5 Mg Tablet) 2.5 mg PO DAILY [facility]; Protocol Last Admin: 04/16/23 08:39 Dose: 2.5 mg Donepezil HCl (Donepezil Hcl 10 Mg Tablet) 10 mg PO DAILY [facility] Last Admin: 04/16/23 08:38 Dose: 10 mg Fenofibrate (Fenofibrate 160 Mg Tablet) 160 mg PO DAILY [facility] Last Admin: 04/16/23 08:38 Dose: 160 mg Magnesium Hydroxide (Milk Of Magnesia 30 Ml Oral.Susp) 30 ml PO DAILY PRN PRN Reason: Constipation Memantine (Memantine Hcl 10 Mg Tablet) 10 mg PO BID [facility] Last Admin: 04/16/23 08:38 Dose: 10 mg Metoprolol Succinate (Metoprolol Succinate Er 100 Mg Tab.Er.24h) 100 mg PO DAILY [facility]; Protocol Last Admin: 04/16/23 08:38 Dose: 100 mg Nystatin (Nystatin Cream 15 Gm Tube) 1 appl TOPICAL BID [facility]; Protocol Last Admin: 04/16/23 08:39 Dose: 1 appl Risperidone (Risperidone 0.5 Mg Tablet) 0.5 mg PO BID@0800,1500 [facility] Last Admin: 04/16/23 08:38 Dose: 0.5 mg Risperidone (Risperidone 0.5 Mg Tablet) 0.5 mg PO BEDTIME [facility] Last Admin: 04/15/23 20:53 Dose: 0.5 mg Risperidone (Risperidone 0.5 Mg Tablet) 0.5 mg PO Q6H PRN PRN Reason: agitation, delirium, psychosis Last Admin: 04/14/23 23:03 Dose: 0.5 mg Sertraline HCl (Sertraline Hcl 25 Mg Tablet) 25 mg PO DAILY [facility] Last Admin: 04/16/23 08:39 Dose: 25 mg Spironolactone (Spironolactone 25 Mg Tablet) 25 mg PO DAILY [facility]; Protocol Last Admin: 04/16/23 08:39 Dose: 25 mg Trazodone HCl (Trazodone Hcl 25 Mg Halftab) 25 mg PO BEDTIME PRN PRN Reason: Insomnia Last Admin: 04/15/23 20:53 Dose: 25 mg Allergies Allergies Allergy/AdvReac Type Severity Reaction Status Date / Time No Known Allergies Allergy Verified 04/03/23 22:02 Assessment & Plan Assessment & Plan (1) Routine history and physical examination of adult: Status: Acute Code(s): Z00.00 - Encounter for general adult medical examination without abnormal findings Plan Pt is a 78-year-old female with a PMH significant for HTN, HLD, and Alzheimer's dementia who is admitted to [facility] for increased agitation and disorgazined thought. Medical consult for admission H&P. Attempted to interview and examine pt, but she refused to answer questions or allow physical examination. Mood disorder Plan as per psychiatry Alzheimer's demetia Unclear if at baseline CT on 03/27/2023 negative for acute intracranial abnormalities CT here on 04/04/2023 showed no evidence of acute intracranial hemorrhage or edematous territorial infarction Continue donepezil Left bundle branch block Appears chronic Continue metoprolol HLD Continue fenofibrate HTN BP control acceptible on current therapies Continue amlodipine, spironolactone Thank you for allowing us to participate in the care of this patient. Signing off at this time. Please let us know if there are any acute complaints or questions. Plan 1. Gather collateral information. 2. Continue with medical work-out. 3. Increase Aricept up to 10 mg to target dementia. 4. Start Namenda 5 mg p.o. daily on April 09. Increase Namenda to 5 mg p.o. b.i.d. on April 11. Namenda was increased at 10 mg p.o. b.i.d. on 04/12 5. Family meeting happened 04/11 6. Start discharge planning Reason for continued inpatient stay Substantial Risk for: inability to function, rapid decompensation and med/psych decompensation Time Spent With Patient Time: Total time managing care of this patient today _20___ minutes.
[2023-04-16 18:00] VITALS: BP 108/60; PULSE 67; RESP 18; TEMP 36.6; O2SAT 96
[2023-04-17 08:15] VITALS: BP 113/55; PULSE 65; RESP 18; TEMP 36; O2SAT 99
[2023-04-17] MEDS: Sertraline HCL 25 MG TABLET PO (08:31)
[2023-04-17] MEDS: Fenofibrate 160 MG TABLET PO (08:31)
[2023-04-17] MEDS: risperiDONE 0.5 MG TABLET PO ×2 (08:31→14:16)
[2023-04-17] MEDS: Memantine HCl 10 MG TABLET PO ×2 (08:32→21:03)
[2023-04-17] MEDS: Nystatin Cream 15 GM TUBE 1 APPL TOPICAL (08:32)
[2023-04-17] MEDS: Donepezil HCl 10 MG TABLET PO (08:32)
[2023-04-17] MEDS: Spironolactone 25 MG TABLET PO (08:32)
[2023-04-17] MEDS: amLODIPine Besylate 2.5 MG TABLET PO (08:32)
[2023-04-17] MEDS: Metoprolol Succinate ER 100 MG TAB.ER.24H PO (08:32)
--- NOTE | 2023-04-17 14:21 | HO.PSYCHPN ---
Subjective Subjective Date of Service: 04/17/23 Reason For Visit: F03.91 Dementia with behavioral disturbances Subjective Notes: Conditional Voluntary Interim History: Pt pleasant on approach. Pt denies any physical concerns. She is well groomed. She slept through the night and taking medications as prescribed. Medication Compliance: Yes Review of Systems Review of Systems Unable to obtain: pt refused interview. Yes Unobtainable due to mental status Mental Status Exam Mental Status Exam Patient Appearance: Well Grooomed and Appropriate Patient Orientation: Person Level of Consciousness: Awake and Appropriate Patient Behavior: Appropriate Mood Description: Calm Affect Description: Constricted Patient Cognition Impaired: Yes Ability to Follow Directions: Good Speech Pattern: Clear Diagnostics Vital Signs (24Hr): Vital Signs - 24 hr 04/16/23 18:00 04/17/23 08:15 Temperature 97.9 F 96.8 F Pulse Rate 67 65 Respiratory Rate 18 18 Blood Pressure 108/60 113/55 L Pulse Oximetry 96 99 Oxygen Delivery Method Room Air BMI result Body Mass Index 19.6 Labs 04/13/23 08:24 04/13/23 08:24 Imaging Radiology Impressions: ITS Impressions Head CT 04/04/23 11:19 IMPRESSION: 1. No evidence of acute intracranial hemorrhage or edematous territorial infarction. 2. Moderate underlying microangiopathy and generalized cerebral volume loss. 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 Medications Medications Current Medications Acetaminophen (Acetaminophen 325 Mg Tablet) 650 mg PO Q6H PRN PRN Reason: Headache/Pain Mild Scale (1-3) Al Hydroxide/Mg Hydroxide (Magnesium Hydrox/Alum Hydrox 30 Ml Oral.Susp) 30 ml PO Q6H PRN PRN Reason: Heartburn/Nausea Amlodipine Besylate (Amlodipine Besylate 2.5 Mg Tablet) 2.5 mg PO DAILY [facility]; Protocol Last Admin: 04/17/23 08:32 Dose: 2.5 mg Donepezil HCl (Donepezil Hcl 10 Mg Tablet) 10 mg PO DAILY [facility] Last Admin: 04/17/23 08:32 Dose: 10 mg Fenofibrate (Fenofibrate 160 Mg Tablet) 160 mg PO DAILY [facility] Last Admin: 04/17/23 08:31 Dose: 160 mg Magnesium Hydroxide (Milk Of Magnesia 30 Ml Oral.Susp) 30 ml PO DAILY PRN PRN Reason: Constipation Memantine (Memantine Hcl 10 Mg Tablet) 10 mg PO BID [facility] Last Admin: 04/17/23 08:32 Dose: 10 mg Metoprolol Succinate (Metoprolol Succinate Er 100 Mg Tab.Er.24h) 100 mg PO DAILY [facility]; Protocol Last Admin: 04/17/23 08:32 Dose: 100 mg Nystatin (Nystatin Cream 15 Gm Tube) 1 appl TOPICAL BID [facility]; Protocol Last Admin: 04/17/23 08:32 Dose: 1 appl Risperidone (Risperidone 0.5 Mg Tablet) 0.5 mg PO BID@0800,1500 [facility] Last Admin: 04/17/23 14:16 Dose: 0.5 mg Risperidone (Risperidone 0.5 Mg Tablet) 0.5 mg PO BEDTIME [facility] Last Admin: 04/16/23 20:19 Dose: 0.5 mg Risperidone (Risperidone 0.5 Mg Tablet) 0.5 mg PO Q6H PRN PRN Reason: agitation, delirium, psychosis Last Admin: 04/14/23 23:03 Dose: 0.5 mg Sertraline HCl (Sertraline Hcl 25 Mg Tablet) 25 mg PO DAILY [facility] Last Admin: 04/17/23 08:31 Dose: 25 mg Spironolactone (Spironolactone 25 Mg Tablet) 25 mg PO DAILY [facility]; Protocol Last Admin: 04/17/23 08:32 Dose: 25 mg Trazodone HCl (Trazodone Hcl 25 Mg Halftab) 25 mg PO BEDTIME PRN PRN Reason: Insomnia Last Admin: 04/15/23 20:53 Dose: 25 mg Allergies Allergies Allergy/AdvReac Type Severity Reaction Status Date / Time No Known Allergies Allergy Verified 04/03/23 22:02 Assessment & Plan Assessment & Plan (1) Neurodegenerative cognitive impairment: Status: Acute Code(s): G31.9 - Degenerative disease of nervous system, unspecified Plan Pt is a 78-year-old female with a PMH significant for HTN, HLD, and Alzheimer's dementia who is admitted to [facility] for increased agitation and disorgazined thought. Medical consult for admission H&P. Attempted to interview and examine pt, but she refused to answer questions or allow physical examination. Mood disorder Plan as per psychiatry Alzheimer's demetia Unclear if at baseline CT on 03/27/2023 negative for acute intracranial abnormalities CT here on 04/04/2023 showed no evidence of acute intracranial hemorrhage or edematous territorial infarction Continue donepezil Left bundle branch block Appears chronic Continue metoprolol HLD Continue fenofibrate HTN BP control acceptible on current therapies Continue amlodipine, spironolactone Thank you for allowing us to participate in the care of this patient. Signing off at this time. Please let us know if there are any acute complaints or questions. Plan 1. Gather collateral information. 2. Continue with medical work-out. 3. Increase Aricept up to 10 mg to target dementia. 4. Start Namenda 5 mg p.o. daily on April 09. Increase Namenda to 5 mg p.o. b.i.d. on April 11. Namenda was increased at 10 mg p.o. b.i.d. on 04/12 5. Family meeting happened 04/11 6. Start discharge planning 04/17 continue tx. Reason for continued inpatient stay Substantial Risk for: inability to function Time Spent With Patient Time: Total time managing care of this patient today ____ minutes.
[2023-04-17 18:00] VITALS: BP 111/52; PULSE 56; RESP 18; TEMP 35.6; O2SAT 97
[2023-04-18] MEDS: Fenofibrate 160 MG TABLET PO (08:24)
[2023-04-18] MEDS: Metoprolol Succinate ER 100 MG TAB.ER.24H PO (08:24)
[2023-04-18] MEDS: Memantine HCl 10 MG TABLET PO ×2 (08:24→19:53)
[2023-04-18] MEDS: amLODIPine Besylate 2.5 MG TABLET PO (08:24)
[2023-04-18] MEDS: Donepezil HCl 10 MG TABLET PO (08:24)
[2023-04-18] MEDS: Spironolactone 25 MG TABLET PO (08:24)
[2023-04-18] MEDS: Sertraline HCL 25 MG TABLET PO (08:24)
[2023-04-18] MEDS: risperiDONE 0.5 MG TABLET PO ×2 (08:24→15:44)
[2023-04-18 09:42] VITALS: BP 125/72; PULSE 60; RESP 16; TEMP 36.6; O2SAT 99
[2023-04-18] MEDS: Nystatin Cream 15 GM TUBE 1 APPL TOPICAL (10:18)
--- NOTE | 2023-04-18 11:45 | HO.PSYCHPN ---
Subjective Subjective Date of Service: 04/18/23 Reason For Visit: F03.91 Dementia with behavioral disturbances Subjective Notes: Conditional Voluntary Interim History: The nursing staff reported the patient had been confused but easily redirectable, wandering in the unit happy and content with treatment. The occupational therapist reported that she attends to groups, cognitively impaired but easily redirectable. On interview the patient denies new symptoms, were planning on discharge planning for tomorrow at home. Mental Status Exam Mental Status Exam Patient Appearance: Well Grooomed and Appropriate Patient Orientation: Person and Situation Level of Consciousness: Awake and Appropriate Patient Behavior: Guarded and Passive Mood Description: Withdrawn Affect Description: Constricted Patient Cognition Impaired: Yes Ability to Follow Directions: Good Speech Pattern: Appropriate Hallucinations: None Delusions: Not Present Thought Process: Linear Thought Content: positive for [place] and positive for Circumstantial Judgement: Fair Diagnostics Vital Signs (24Hr): Vital Signs - 24 hr 04/17/23 18:00 04/18/23 09:42 Temperature 96.1 F L 97.9 F Pulse Rate 56 60 Respiratory Rate 18 16 Blood Pressure 111/52 L 125/72 Pulse Oximetry 97 99 Oxygen Delivery Method Room Air Room Air BMI result Body Mass Index 19.6 Labs 04/13/23 08:24 04/13/23 08:24 Imaging Radiology Impressions: ITS Impressions Head CT 04/04/23 11:19 IMPRESSION: 1. No evidence of acute intracranial hemorrhage or edematous territorial infarction. 2. Moderate underlying microangiopathy and generalized cerebral volume loss. 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 Medications Medications Current Medications Acetaminophen (Acetaminophen 325 Mg Tablet) 650 mg PO Q6H PRN PRN Reason: Headache/Pain Mild Scale (1-3) Al Hydroxide/Mg Hydroxide (Magnesium Hydrox/Alum Hydrox 30 Ml Oral.Susp) 30 ml PO Q6H PRN PRN Reason: Heartburn/Nausea Amlodipine Besylate (Amlodipine Besylate 2.5 Mg Tablet) 2.5 mg PO DAILY [facility]; Protocol Last Admin: 04/18/23 08:24 Dose: 2.5 mg Donepezil HCl (Donepezil Hcl 10 Mg Tablet) 10 mg PO DAILY [facility] Last Admin: 04/18/23 08:24 Dose: 10 mg Fenofibrate (Fenofibrate 160 Mg Tablet) 160 mg PO DAILY [facility] Last Admin: 04/18/23 08:24 Dose: 160 mg Magnesium Hydroxide (Milk Of Magnesia 30 Ml Oral.Susp) 30 ml PO DAILY PRN PRN Reason: Constipation Memantine (Memantine Hcl 10 Mg Tablet) 10 mg PO BID [facility] Last Admin: 04/18/23 08:24 Dose: 10 mg Metoprolol Succinate (Metoprolol Succinate Er 100 Mg Tab.Er.24h) 100 mg PO DAILY [facility]; Protocol Last Admin: 04/18/23 08:24 Dose: 100 mg Nystatin (Nystatin Cream 15 Gm Tube) 1 appl TOPICAL BID [facility]; Protocol Last Admin: 04/18/23 10:18 Dose: 1 appl Risperidone (Risperidone 0.5 Mg Tablet) 0.5 mg PO BID@0800,1500 [facility] Last Admin: 04/18/23 08:24 Dose: 0.5 mg Risperidone (Risperidone 0.5 Mg Tablet) 0.5 mg PO BEDTIME BECKY Last Admin: 04/17/23 21:03 Dose: 0.5 mg Risperidone (Risperidone 0.5 Mg Tablet) 0.5 mg PO Q6H PRN PRN Reason: agitation, delirium, psychosis Last Admin: 04/14/23 23:03 Dose: 0.5 mg Sertraline HCl (Sertraline Hcl 25 Mg Tablet) 25 mg PO DAILY [facility] Last Admin: 04/18/23 08:24 Dose: 25 mg Spironolactone (Spironolactone 25 Mg Tablet) 25 mg PO DAILY [facility]; Protocol Last Admin: 04/18/23 08:24 Dose: 25 mg Trazodone HCl (Trazodone Hcl 25 Mg Halftab) 25 mg PO BEDTIME PRN PRN Reason: Insomnia Last Admin: 04/15/23 20:53 Dose: 25 mg Allergies Allergies Allergy/AdvReac Type Severity Reaction Status Date / Time No Known Allergies Allergy Verified 04/03/23 22:02 Assessment & Plan Assessment & Plan (1) Neurodegenerative cognitive impairment: Status: Acute Code(s): G31.9 - Degenerative disease of nervous system, unspecified Plan Pt is a 78-year-old female with a PMH significant for HTN, HLD, and Alzheimer's dementia who is admitted to [facility] for increased agitation and disorgazined thought. Medical consult for admission H&P. Attempted to interview and examine pt, but she refused to answer questions or allow physical examination. Mood disorder Plan as per psychiatry Alzheimer's demetia Unclear if at baseline CT on 03/27/2023 negative for acute intracranial abnormalities CT here on 04/04/2023 showed no evidence of acute intracranial hemorrhage or edematous territorial infarction Continue donepezil Left bundle branch block Appears chronic Continue metoprolol HLD Continue fenofibrate HTN BP control acceptible on current therapies Continue amlodipine, spironolactone Thank you for allowing us to participate in the care of this patient. Signing off at this time. Please let us know if there are any acute complaints or questions. Plan 1. Gather collateral information. 2. Continue with medical work-out. 3. Increase Aricept up to 10 mg to target dementia. 4. Start Namenda 5 mg p.o. daily on April 09. Increase Namenda to 5 mg p.o. b.i.d. on April 11. Namenda was increased at 10 mg p.o. b.i.d. on 04/12 5. Family meeting happened 04/11 6. Discharge for tomorrow April 19 to home. Reason for continued inpatient stay Substantial Risk for: inability to function, rapid decompensation and med/psych decompensation Time Spent With Patient Time: Total time managing care of this patient today _20___ minutes.
[2023-04-18 20:24] VITALS: BP 118/56; PULSE 66; RESP 18; TEMP 36.4; O2SAT 98
[2023-04-19 08:10] VITALS: BP 124/56; PULSE 58; RESP 16; TEMP 36.1; O2SAT 98
[2023-04-19] MEDS: Metoprolol Succinate ER 100 MG TAB.ER.24H PO (08:13)
[2023-04-19] MEDS: Sertraline HCL 25 MG TABLET PO (08:13)
[2023-04-19] MEDS: Spironolactone 25 MG TABLET PO (08:14)
[2023-04-19] MEDS: Donepezil HCl 10 MG TABLET PO (08:14)
[2023-04-19] MEDS: risperiDONE 0.5 MG TABLET PO (08:14)
[2023-04-19] MEDS: amLODIPine Besylate 2.5 MG TABLET PO (08:14)
[2023-04-19] MEDS: Memantine HCl 10 MG TABLET PO (08:14)
[2023-04-19] MEDS: Fenofibrate 160 MG TABLET PO (08:14)
--- NOTE | 2023-04-19 08:15 | PM.PSYDC ---
DS: Providers Provider Date of Service: 04/19/23 Date of admission: 04/03/23 21:05 Date of discharge: 04/19/23 Primary care physician: Unknown Physician Consults: 04/03/23 22:26 Consult to Hospitalist Routine Comment: Consulting Provider: Hospitalist Reason For Exam: admission physical Attending physician on discharge: Ray Jacobson DS: Diagnosis Discharge Diagnosis (1) Neurodegenerative cognitive impairment: Status: Acute DS: Medications Discharge Medications Home Medications: Home Medications Medication Instructions Recorded Confirmed amlodipine 2.5 mg tablet 2.5 mg PO DAILY 04/03/23 04/03/23 donepezil 5 mg tablet 5 mg PO DAILY 04/03/23 04/03/23 fenofibrate 160 mg tablet 160 mg PO DAILY 04/03/23 04/03/23 lorazepam 0.5 mg tablet 0.5 mg PO BID PRN Anxiety 04/03/23 04/03/23 metoprolol succinate 100 mg 100 mg PO DAILY 04/03/23 04/03/23 tablet,extended release 24 hr olanzapine 2.5 mg PO PRN Agitation 04/03/23 olanzapine 5 mg PO DAILY 04/03/23 04/03/23 risperidone 0.5 mg PO BID 04/03/23 04/03/23 sertraline 25 mg tablet 25 mg PO DAILY 04/03/23 04/03/23 spironolactone 25 mg tablet 25 mg PO DAILY 04/03/23 04/03/23 Mental Status Exam Mental Status Exam Patient Appearance: Well Grooomed and Appropriate Patient Orientation: Person Level of Consciousness: Awake and Appropriate Patient Behavior: Cooperative and Passive Mood Description: Withdrawn Affect Description: Calm Patient Cognition Impaired: Yes Ability to Follow Directions: Fair Speech Pattern: Clear Hallucinations: None Delusions: Not Present Thought Process: Distracted and Slowed Thinking Thought Content: positive for [place] and positive for Poverty of Content Judgement: Fair Data Data Completed and Pending Completed studies during hospitalization [Text1]: 04/13/23 04/13/23 04/13/23 08:24 08:24 08:24 WBC 7.4 RBC 4.43 Hgb 14.0 Hct 40.2 MCV 90.7 MCH 31.6 MCHC 34.8 RDW 12.9 Plt Count 284 MPV 9.9 Immature Gran % (Auto) 1.1 H Neut % (Auto) 70.4 Lymph % (Auto) 20.1 [place] % (Auto) 6.4 Eos % (Auto) 1.1 Baso % (Auto) 0.9 Lymph # (Auto) 1.5 [place] # (Auto) 0.5 Eos # (Auto) 0.1 Baso # (Auto) 0.1 Abs Immat Gran (auto) 0.08 H Absolute Neuts (auto) 5.2 Absolute Nucleated RBC 0.000 Nucleated RBC % (auto) 0.0 Sodium 141 Potassium 3.6 Chloride 109 H Carbon Dioxide 22 Anion Gap 14 BUN 28 H Creatinine 1.07 Estim Creat Clear Calc 34.9 Estimated GFR 49 Random Glucose 143 H Estimat Average Glucose 94 Hemoglobin A1c % 4.9 Calcium 9.7 Triglycerides 39 Cholesterol 120 LDL Cholesterol, Calc 66 HDL Cholesterol 47 Imaging Diagnostic Imaging Impressions Head CT 04/04/23 11:19 IMPRESSION: 1. No evidence of acute intracranial hemorrhage or edematous territorial infarction. 2. Moderate underlying microangiopathy and generalized cerebral volume loss. 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 DS: Summary Hospital Course Hospital Course: The patient is a 78-year-old female with no prior history, with a prior diagnosis of dementia who was brought to the facility from a different hospital for disorganized behavior, wandering and trying to elope home. Please see the HPI of the admission note for further details. On admission she was medically workout and there was no evidence of any acute medical concerns. On intake, the patient was very confused but pleasant, no evidence of disruptive behavior. The social media analyst contact his family and they want her back home with proper medical treatment. She was initially treated with antipsychotics since the patient was delusional. We start a slow titration of Risperdal at 0.5 mg p.o. b.i.d. and 1 mg p.o. q.h.s. with no side effects and improvement of her paranoia. Also, the occupational therapist did neuro cognitive testing and she was impaired so we start the titration of Aricept up to 10 mg p.o. q.h.s. and later on, we added Namenda titrated up to 10 mg p.o. b.i.d. with no side effects. The patient's mood improved, she was pleasant, cooperative, easily redirectable and her participation in groups improved remarkably. Since there were no safety concerns, the discharge planning was discussed to go back home with ancillary services. Please see the social media analyst note for details about the services. Time spent discussing smoking cessation with patient: 3 to 10 minutes Status at Discharge Cognitive/behavioral status at discharge: Impaired at baseline Functional status at discharge: independent ambulation Overall status at discharge: patient is back to baseline Time Spent with Patient Time attestation: Total time managing care of this patient today __30__ minutes. Time spent: Less than 30 minutes Discharge Plan Discharge Anticipated Discharge Date/Time: 04/19/23 10:00 Patient Disposition: Home, Self-Care Discharge Diagnosis: Dementia Alzheimer's type. Psychosis resolved Referrals: Dr. Owen - PCP [Other] - 04/20/23 10:00 am [email or web address] [Other] - 1 Week ([facility] will call patient's to set up home services. ) Physician,Karina J [Primary Care Provider] - 1 Week Discharge Medications: New donepezil 10 mg Tablet 10 mg PO DAILY 30 Days Qty: 30 0RF nystatin 100,000 unit/gram Cream 1 appl topical BID 30 Days Qty: 1 0RF Protocol: Apply to: Apply to: elvis-anal risperidone 0.5 mg Tablet 0.5 mg PO BID@0800,1500 30 Days Qty: 60 0RF risperidone 0.5 mg Tablet 0.5 mg PO BEDTIME 30 Days Qty: 30 0RF memantine [Namenda] 10 mg Tablet 10 mg PO BID 30 Days Qty: 60 0RF Continued metoprolol succinate 100 mg tablet extended release 24 hr 100 mg PO DAILY 30 Days Qty: 30 0RF amlodipine 2.5 mg tablet 2.5 mg PO DAILY 30 Days Qty: 30 0RF spironolactone 25 mg tablet 25 mg PO DAILY 30 Days Qty: 30 0RF sertraline 25 mg tablet 25 mg PO DAILY 30 Days Qty: 30 0RF fenofibrate 160 mg tablet 160 mg PO DAILY 30 Days Qty: 30 0RF Discontinued donepezil 5 mg tablet 5 mg PO DAILY lorazepam 0.5 mg tablet 0.5 mg PO BID PRN (Reason: Anxiety) risperidone 0.5 mg PO BID olanzapine 5 mg PO DAILY olanzapine 2.5 mg PO PRN (Reason: Agitation) Discharge Orders: Discharge Order (Routine); Ordered 04/19/23 Ordered By: Ray Jacobson Diet: Advance to usual diet Activity on Discharge: As tolerated Stand Alone Forms: Patient Portal Discharge page Care Plan Goals: Care plan goals achieved in this admission Health Concerns: Continue treatment with primary care physician Plan of Treatment: Continue treatment with outpatient providers Assessment: Elderly female with a past history of Alzheimer's dementia who was brought into the facility for increased confusion, agitation and psychosis. She was treated with a low dose of antipsychotics with for improvement and we improved her treatment for dementia increasing Aricept to 10 mg p.o. q.h.s. and adding Namenda 10 mg p.o. b.i.d. with no side effects and improved of her cognition. She was able to participate in groups and she is safe to be discharged to the community
[2023-04-19] MEDS: Nystatin Cream 15 GM TUBE 1 APPL TOPICAL (09:03)
== END 2023-04-19 10:30 | disposition home or self-care (01) | DRG 885 ==
PROVIDERS: Admitting Provider Psychiatry & Neurology Psychiatry; Visit Provider Psychiatry & Neurology Psychiatry
DX: F22 Delusional disorders (principal); F02.818 Dementia in other diseases classified elsewhere, unspecified severity, with other behavioral disturbance; G30.9 Alzheimer's disease, unspecified; I44.7 Left bundle-branch block, unspecified; E78.5 Hyperlipidemia, unspecified; I10 Essential (primary) hypertension; Z79.899 Other long term (current) drug therapy
CPT/HCPCS: 36415; 70450; 80048; 80061; 81001; 83036; 84443; 85025; 93005